=== PATIENT | female | born 1995 | race Caucasian/White ===

== ENCOUNTER 2020-01-09 11:39 | Outpatient (REF) | payer OTHER, SELFPAY ==
[2020-01-09 11:59] LABS: COVID-19 Test Negative (Negative)
== END 2020-01-09 11:40 | disposition home or self-care (01) ==
LOC: HO.LABR 11:39
PROVIDERS: Visit Provider Internal Medicine
DX: Z20.828 Contact with and (suspected) exposure to other viral communicable diseases (principal)
CPT/HCPCS: 87635

== ENCOUNTER 2020-01-18 10:44 | Outpatient (REF) | payer OTHER, SELFPAY ==
[2020-01-18 11:02] LABS: COVID-19 Test Negative (Negative)
== END 2020-01-18 10:45 | disposition home or self-care (01) ==
LOC: HO.LAB 10:44
PROVIDERS: Visit Provider Internal Medicine
DX: Z20.828 Contact with and (suspected) exposure to other viral communicable diseases (principal)
CPT/HCPCS: 87635

== ENCOUNTER 2020-02-14 10:28 | Outpatient (REF) | payer OTHER, SELFPAY ==
[2020-02-14 10:57] LABS: COVID-19 Test Negative (Negative)
== END 2020-02-14 10:29 | disposition home or self-care (01) ==
LOC: HO.EMPCOV 10:28
PROVIDERS: Visit Provider Internal Medicine
DX: Z20.828 Contact with and (suspected) exposure to other viral communicable diseases (principal)
CPT/HCPCS: 87635; C9803

== ENCOUNTER 2020-02-20 08:26 | Outpatient (REF) | payer OTHER, SELFPAY ==
[2020-02-20 09:00] LABS: COVID-19 Test Negative (Negative)
== END 2020-02-20 08:27 | disposition home or self-care (01) ==
LOC: HO.EMPCOV 08:26
PROVIDERS: Visit Provider Internal Medicine
DX: Z20.828 Contact with and (suspected) exposure to other viral communicable diseases (principal)
CPT/HCPCS: 87635; C9803

== ENCOUNTER 2020-02-25 08:47 | Outpatient (REF) | payer OTHER, SELFPAY ==
[2020-02-25 09:53] LABS: COVID-19 Test Negative (Negative); IDNOW Serial# 55D5AD1C
== END 2020-02-25 08:48 | disposition home or self-care (01) ==
LOC: HO.EMPCOV 08:47
PROVIDERS: Visit Provider Internal Medicine
DX: Z20.828 Contact with and (suspected) exposure to other viral communicable diseases (principal)
CPT/HCPCS: 87635; C9803

== ENCOUNTER 2020-02-27 00:37 | Emergency (ER) | payer OTHER, SELFPAY ==
--- NOTE | 2020-02-27 | XR_ITS ---
EXAMINATION: XR CHEST CLINICAL INFORMATION: Chest wall/left lateral rib pain COMPARISON: None TECHNIQUE: 2 views of the chest were obtained. FINDINGS: The lungs are clear with no focal consolidation. No evidence of pneumothorax, pulmonary edema, or pleural effusions. The cardiomediastinal silhouette is unremarkable. No acute osseous findings. XR/XR chest 2V IMPRESSION: No acute cardiopulmonary findings.
[2020-02-27 01:01] VITALS: BP 127/71; PULSE 83; RESP 16; TEMP 37.1; O2SAT 96; BMI 27.4
--- NOTE | 2020-02-27 02:27 | PC.NURSE ---
Pt awake and alert, breathing equal and unlabored. Breath sounds clear throughout. Presents to ED for concerns of left sided chest wall pain, mainly under left breast. Pt states she denies injury to area. Pt states pain worse with movement, pain not always constant. Pain started this morning. Denies other concerns. Well appearing. Will continue to monitor. Awaiting provider eval
--- NOTE | 2020-02-27 03:14 | ED.GENADULT ---
HPI - General Adult General Chief complaint: General Medical Stated complaint: LEFT RIB PAIN Time Seen by Provider: 02/27/20 03:05 Source: patient Mode of arrival: ambulatory Limitations: no limitations History of Present Illness HPI narrative: this is a 24-year-old female who describes various areas of transient pain going from the left lower rib area down across her middle that is not associated with any fevers, chills, nausea, vomiting, diarrhea, urinary pain/ burning / frequency. Patient does state that she suffers from constipation and has not been able to go in a couple of days. Related Data Previous Rx's Medication Instructions Recorded polyethylene glycol 3350 [Miralax] 17 g PO BID #119 g 02/27/20 Allergies Allergy/AdvReac Type Severity Reaction Status Date / Time No Known Allergies Allergy Verified 02/27/20 00:59 Review of Systems Review of Systems: Pertinent positives and negatives as stated in HPI 10 point review of systems otherwise negative. PMFSH Past Medical History Source: nursing notes reviewed Medical History No known health problems Social History Social History Advance Directives: No Advance Directives Information Provided: No Physical Exam Vital Signs: Vital Signs: Last Vital Signs Temp 98.7 F 02/27/20 01:01 Pulse 83 02/27/20 01:01 Resp 16 02/27/20 01:01 BP 127/71 02/27/20 01:01 Pulse Ox 96 02/27/20 01:01 Body Mass Index 27.4 VITAL SIGNS: Reviewed. GENERAL: Well developed, well nourished, in no acute distress. HEAD: Normocephalic/atraumatic, EYES: PERRLA, EOMI intact without pain, no nystagmus/pallor/icterus noted EARS: Ext canals without abnormality, TMs non-bulging and non-erythematous NOSE: Nares patent bilateral OROPHARYNX: no oral lesions noted, posterior pharynx clear and non-erythematous without noted tonsillar enlargement/erythema/exudates NECK: Supple, no adenopathy LUNGS: Normal breath sounds. No adventitious sounds or accessory muscle use. SpO2<96> CARDIOVASCULAR: Regular rate and rhythm without noted murmurs, no JVD or lower extremity edema. ABDOMEN: Soft, very mild discomfort, non-distended with bowel sounds. No rigidity. No guarding. No palpable masses or hernias noted MUSCULOSKELETAL: No tenderness, deformities, or effusions noted on gross inspection. EXTREMITIES: No cyanosis, clubbing or edema. SKIN: Inspection of the skin reveals no rashes, ulcerations, jaundice, pallor, or petechiae. NEUROLOGIC: Alert and oriented x 4. Strength and sensation to light touch were grossly intact x 4. Course Course Course Narrative: this is a 24-year-old female with history and clinical presentation most consistent with constipation and review of x-ray is negative for any acute findings to otherwise explain the constellation of her pain locations. Given the absence other constitutional symptoms this is unlikely to be consistent with a gastritis, diverticulitis, renal colic, or UTI. This was all discussed with the patient at bedside and she agrees that this is likely secondary to her constipation and treatment was discussed with her regarding MiraLax twice a day and increase her oral hydration. Discharge Plan Discharge Clinical Impression: Constipation Qualifiers: Constipation type: unspecified constipation type Qualified Code(s): K59.00 - Constipation, unspecified Patient Disposition: Home, Self-Care Instructions: Constipation (ED), High Fiber Diet (ED) Additional Instructions: 1. Increase her fluid hydration especially with water. 2. increase fruits and vegetables. The patient and/or family acknowledge understanding of results (as applicable), diagnosis, treatment plan, need for follow up, and symptoms that should prompt a return to the emergency room. Prescriptions: New polyethylene glycol 3350 [Miralax] 17 gram/dose powder 17 g PO BID Qty: 119 RF: 0 Referrals: Physician,None [Primary Care Provider] - 2 days
== END 2020-02-27 03:42 | disposition home or self-care (01) ==
PROVIDERS: Emergency Provider Student in an Organized Health Care Education/Training Program
DX: K59.00 Constipation, unspecified (principal); R10.9 Unspecified abdominal pain; Z79.899 Other long term (current) drug therapy
CPT/HCPCS: 71046; 99283

== ENCOUNTER 2020-03-11 10:17 | Outpatient (REF) | payer OTHER, SELFPAY ==
[2020-03-11 10:47] LABS: COVID-19 Test Negative (Negative)
== END 2020-03-11 10:18 | disposition home or self-care (01) ==
LOC: HO.EMPCOV 10:17
PROVIDERS: Visit Provider Internal Medicine
DX: Z20.828 Contact with and (suspected) exposure to other viral communicable diseases (principal)
CPT/HCPCS: 87635; C9803

== ENCOUNTER 2020-04-03 07:57 | Outpatient (REF) | payer OTHER, SELFPAY ==
[2020-04-03 08:16] LABS: COVID-19 Test Negative (Negative)
== END 2020-04-03 07:58 | disposition home or self-care (01) ==
LOC: HO.EMPCOV 07:57
PROVIDERS: Visit Provider Internal Medicine
DX: Z20.828 Contact with and (suspected) exposure to other viral communicable diseases (principal)
CPT/HCPCS: 36415; 87635; C9803

== ENCOUNTER 2020-04-14 11:42 | Outpatient (REF) | payer OTHER, SELFPAY ==
[2020-04-14 12:21] LABS: COVID-19 Test Negative (Negative)
== END 2020-04-14 11:43 | disposition home or self-care (01) ==
LOC: HO.EMPCOV 11:42
PROVIDERS: Visit Provider Internal Medicine
DX: Z20.822 Contact with and (suspected) exposure to COVID-19 (principal)
CPT/HCPCS: 36415; 87635; C9803

== ENCOUNTER 2020-06-04 10:12 | Outpatient (REF) | payer OTHER, SELFPAY ==
[2020-06-04 10:48] LABS: COVID-19 Test Negative (Negative); IDNOW Serial# 55D5AD1C
== END 2020-06-04 10:13 | disposition home or self-care (01) ==
LOC: HO.EMPCOV 10:12
PROVIDERS: Visit Provider Internal Medicine
DX: Z11.52 Encounter for screening for COVID-19 (principal)
CPT/HCPCS: 36415; 87635; C9803

== ENCOUNTER 2025-01-01 10:00 | Outpatient (REF) | payer OTHER, SELFPAY ==
--- OUTSIDE RECORDS SUMMARY | 2025-01-01 09:30 | XMS_ITS | Encounter Summary ---
Author Organization [employer] Address [address] [place] [address] 7t [place] [address] Care Team Providers Care Chair And Couch Maker Name Role Phone Delaney Long MD Primary Care Provide r Reason for Referral * Imaging (Routine) - Authorized Specialty Diagnoses / Procedures Referred By Contac t Referred To Contact Radiology Diagnoses Metrorrhagia Procedures Us Pelvis complete Delaney Long MD [address] [place] [address] Phone: tel: fax: [address] Phone: tel: fax: Referral ID Status Reason Start Date Expiration Date V isits Requested Visits Authorized [id number] Authorized 01/01/2025 01/01/2026 1 1 Encounter Details Date Type Department Care Team (Late st Contact Info) Description 01/01/2025 9:30 AM EDT Office Visit [facility] [address] [place] [address] [phone] Delaney Long MD [address] [place], [place] [phone] Dietary counseling; Exercise counseling; Metrorrhagia; Desire for Social History Tobacco Use Types Packs/Day Years Used Date Smoking Tobacco: Never Smokeless Tobacco: Never Alcohol Use Standard Drinks/Week Comments Yes 0 (1 standard drink = 0.6 oz pur e alcohol) Socially Depression Answer Date Recorded Patient Health Questionnaire-9 Score 0 01/31/2023 Patient Health Questionnaire-9 Score 0 01/31/2023 Last PHQ-9: Questionnaire Data Not on file 1 04/02/2022 Housing Stability Answer Date Recorded What is [...] Date Recorded Patient Health Questionnaire-2 Score 0 01/31/2023 Internet Access Answer Date Recorded Internet Access [...] 9:34 AM EDT documented in this encounter Plan of Treatment Upcoming Encounters Date Type Department Care Team (Late st Contact Info) Description 01/07/2025 9:00 AM EDT Telemedicine [address] [phone] Delaney Long MD [address] [place], [place] [phone] 01/10/2025 10:15 AM EDT Procedure Visit [facility] [address] [place] [address] [phone] Delaney Long MD [address] [place] [address] [phone] Scheduled Orders Name Type Priority Associated Diagnoses Orde r Schedule Us Pelvis complete Imaging Routine Metrorrhagia Expected: 01/01/2025, Expires: 01/01/2026 Comprehensive Metabolic Panel Lab Routine Metrorrhagia Expected: 01/01/2025 (Approximate), Expires: 01/01/2026 HIV-1/2 Antigen and Antibodies, Fourth Generation, with Reflexes Lab Routine Metrorrhagia Expected: 01/01/2025 (Approximate), Expires: 01/01/2026 Hepatitis C Antibody with Reflex to HCV, RNA, Quantitative, Real-Time PCR Lab Routine Metrorrhagia Expected: 01/01/2025, Expires: 01/01/2026 Lipid Panel, Standard Lab Routine Metrorrhagia Expected: 01/01/2025 (Approximate), Expires: 01/01/2026 Vitamin D, 25-Hydroxy, Total, Immunoassay Lab Routine Metrorrhagia Expected: 01/01/2025 (Approximate), Expires: 01/01/2026 TSH with Reflex to Free T4 Lab Routine Metrorrhagia Expected: 01/01/2025 (Approximate), Expires: 01/01/2026 documented as of this encounter Procedures Procedure Name Priority Date/Time Associated Diagnosis Comments CBC WITH AUTO DIFFERENTIAL Routine 01/01/2025 10:05 AM EDT Metrorrhagia HEMOGLOBIN A1C Routine 01/01/2025 10:05 AM EDT Metrorrhagia documented in this encounter Results * Hemoglobin A1c (01/01/2025 10:05 AM EDT) Hemoglobin A1c 4.9 <6.0 % [facility] Comment:Hemoglobin A1C Refer ence Range Adults: 4.8 - 6.0 % Non diabetic: < 6.0 % Goal: < 7.0 %Additional Action Suggested: > 8.0 %Note: Hemoglobin A1c results are invalid for patients with abnormal amounts of HbF. Blood transfusions may impact the HbA1c concentration in the patient sample. Estimated Average Glucose 94 mg/dL [facility] Comment:eAG = Estimated ave rage glucose which is %A1C expressed asaverage glucose, using the formula of the E6R-PdtnddsQayijsf Glucose study (ADAG), Diabetes Care, Vol.31,#8,Oct. 2007 Blood Venous blood specimen / Unknown 01/01/2025 10:05 AM EDT 01/01/2025 11:27 AM EDT us Delaney Quinonez MD LAB BLOOD ORDERABLES Final Result [facility] [address] [place] [phone] * CBC auto differential (01/01/2025 10:05 AM EDT) White Blood Count 5.6 4.8 - 10.8 X10*3/uL [facility] Red Blood Count 4.34 4.20 - 5.50 X10*6/uL [facility] Hemoglobin 12.3 12.0 - 16.0 g/dl [facility] Hematocrit 38.0 37.0 - 47.0 % [facility] Mean Corpuscular Volume 87.6 80.0 - 98.0 fL [facility] Mean Corpuscular Hemoglobin 28.3 27.0 - 33.0 pg [facility] Mean Corpuscular HGB Conc 32.4 31.0 - 35.0 g/dl [facility] Red Cell Distribution Width 12.3 11.0 - 16.0 % [facility] Platelet Count 210 160 - 400 X10*3/uL [facility] Mean Platelet Volume 12.2 9.4 - 12.3 fL [facility] Neutrophils Percent Auto 56.6 45 - 73 % [facility] Imm Gran Pct Auto 0.4 0.0 - 0.4 % [facility] Lymphocytes Percent Auto 33.2 20 - 40 % [facility] Monocytes Percent Auto 6.8 2 - 11 % [facility] Eosinophils Percent Auto 2.1 0 - 4 % [facility] Basophils Percent Auto 0.9 0 - 2 % [facility] NRBC Pct Auto 0.0 0.0 - 0.2 /100WBC [facility] Neutrophils Absolute Auto 3.2 2.0 - 8.3 x10*3/uL [facility] Imm Gran Abs Auto 0.02 0.00 - 0.03 X10*3/uL [facility] Lymphocytes Absolute Auto 1.9 1.2 - 4.9 X10*3/uL [facility] Monocytes Absolute Auto 0.4 0.1 - 1.2 X10*3/uL [facility] Eosinophils Absolute Auto 0.1 0.0 - 0.4 X10*3/uL [facility] Basophils Absolute Auto 0.1 0.0 - 0.2 X10*3/uL [facility] NRBC Abs Auto 0.000 0.0 - 0.012 X10*3/uL [facility] Blood Venous blood specimen / Unknown 01/01/2025 10:05 AM EDT 01/01/2025 11:27 AM EDT us Delaney Quinonez MD LAB BLOOD ORDERABLES Final Result [facility] [address] [place] [phone] documented in this encounter Visit Diagnoses Diagnosis Dietary counseling Dietary surveillance and counseling Exercise counseling Metrorrhagia Desire for documented in this encounter Additional Health Concerns Assessment Noted Time PHQ-9 Depression Total Score: 0 02/01/20 23 2:56 PM EST documented as of this encounter Care Teams Chair And Couch Maker Relationship Specialty Start Date End Date Delaney Long MD [address] [place] [phone] PCP - General Family Medicine 02/28/20 documented as of this encounter
[2025-01-01 11:29] LABS: MANUAL DIFF FLAG NO
[2025-01-01 11:41] LABS: Hematocrit 38.0 % (37.0-47.0); Hemoglobin 12.3 g/dl (12.0-16.0); Imm Gran Abs Auto 0.02 X10*3/uL (0.00-0.03); Imm Gran Pct Auto 0.4 % (0.0-0.4); Lymphocytes Absolute Auto 1.9 X10*3/uL (1.2-4.9); Mean Corpuscular HGB Conc 32.4 g/dl (31.0-35.0); Mean Corpuscular Hemoglobin 28.3 pg (27.0-33.0); Mean Corpuscular Volume 87.6 fL (80.0-98.0); NRBC Abs Auto 0.000 X10*3/uL (0.0-0.012); NRBC Pct Auto 0.0 /100WBC (0.0-0.2); Platelet Count 210 X10*3/uL (160-400); Red Blood Count 4.34 X10*6/uL (4.20-5.50); White Blood Count 5.6 X10*3/uL (4.8-10.8)
--- OUTSIDE RECORDS SUMMARY | 2025-01-01 11:46 | XMS_ITS | Encounter Summary ---
Author Organization [employer] Address [address] [facility] 7t [place] [address] Care Team Providers Care Watch Crystal Edge Grinder Name Role Phone Delaney Long MD Primary Care Provide r Encounter Details Date Type Department Care Team (Latest Contact Info) Description 01/01/2025 Travel Social History Tobacco Use Types Packs/Day Years [...] AM EDT documented as of this encounter Plan of Treatment Upcoming Encounters Date Type Department Care Team (Late st Contact Info) Description 01/07/2025 9:00 AM EDT Telemedicine [facility] [address] [place] [phone] Delaney Long MD [address] [place] [phone] 01/10/2025 10:15 AM EDT Procedure Visit [facility] [address] [place] [phone] Delaney Long MD [address] [place] [phone] documented as of this encounter Visit Diagnoses Not on filedocumented in this encounter Additional Health Concerns Assessment Noted Time PHQ-9 Depression Total Score: 0 02/01/20 23 2:56 PM EST documented as of this encounter Care Teams Watch Crystal Edge Grinder Relationship Specialty Start Date End Date Delaney Long MD [address] [place] [phone] PCP - General Family Medicine 02/28/20 documented as of this encounter
--- OUTSIDE RECORDS SUMMARY | 2025-01-01 11:46 | XMS_ITS | Clinical Summary ---
Author Organization [employer] Address [address] [place] [address] 7t [place] [address] Care Team Providers Care Filler Picker Name Role Phone Delaney Long MD Primary Care Provide r Allergies No known active allergies Medications hydrocortisone (Anusol-HC) 2.5 % rectal creamIndications :Grade I hemorrhoids Insert into the rectum 2 times daily. 28 g 3 Active fluticasone (Flonase Allergy Relief) 50 MCG/ACT nasal spray Administer 1 spray into each nostril Once per day. Shake gently. Before first use, prime pump. After use, clean tip and replace cap. 16 g 12 4 02/03/20 25 Active albuterol 108 (90 Base) MCG/ACT inhaler Inhale 2 puffs every 4 (four) hours if needed for wheezing or shortness of breath. 18 g 1 4 02/03/20 25 Active Spacer/Aero-Hold ing Chambers (OptiChamber Danna) misc 1 each every 4 (four) hours if needed (asthma). 1 each 4 Active Vit-Fe Fumarate-FA ( Vitamins) 27-0.8 MG tabletIndication s:Desire for Take 1 tablet by mouth Once per day. 30 each 6 5 Active Active Problems Problem Noted Date Diagnosed Date Metrorrhagia 01/01/2025 Desire for 01/01/2025 Other constipation 01/31/2023 Assessment & Plan (01/31/2023 3:42 PM EST): Drink more water, walk more, include more fiber on the diet Grade I hemorrhoids 01/31/2023 Encounter for preventive care 01/31/2023 Assessment & Plan (01/31/2023 3:42 PM EST): See HPI Encounters Date Type Department Care Team Description 01/01/2025 9:30 AM EDT Office Visit [address] [phone] Delaney Long MD Dietary counseling; Exercise counseling; Metrorrhagia; Desire for 01/01/2025 Travel 12/31/[address] [phone] Delaney Long MD Chart Prep 12/25/2024 Patient Outreach [address] [phone] Delaney Long MD Pre-visit Planning (SDOH screening completed on 10/08/2024) 10/10/[address] [address] Delaney Long MD Appointment Request 10/08/2024 Patient Outreach [address] [phone] Delaney Long MD Pre-visit Planning (SDOH screening negative and tobacco screening negative) from Last 3 Months Immunizations Immunization Administration Dates Next Due DTaP 11/06/2001, 9,01/28/1999,05/07,01/01/1998 HPV, Quadrivalent 06/08/2013,03/15/2012,08/16/19 10 Hep A, ped/adol, 2 dose 05/29/2015 Hep B, Adolescent or Pediatric 05/07/1998,1997,01/01/1998 Hib (HbO) 01/28/1999, 9,03/05/1998,01/01 IPV 11/07/2007, 9,03/05/1998,01/01 Influenza injectable quadriv alent IIV4 with preservative 12/24/2016,05/29/2015 Influenza injectable quadriv alent preservative free 12/23/2022,12/11/2021,01/08/2021,12/24,02/28/2018 Influenza, Split (incl. [place] antigen) 06/08/2013 Influenza, live, intranasal 03/15/2012 Influenza, seasonal, injecta ble, preservative free 02/11/2016 MMR 11/06/2001,10/29/1998 Meningococcal MCV4P ACYW-135 05/29/2015,08/16/19 10 Tdap 12/24/2016,08/15/2009 Varicella 07/26/2008,10/29/1998 Social History Tobacco Use Types Packs/Day Years [...] Orientation Straight 01/25/2022 10 :16 AM EDT Last Filed Vital Signs Vital Sign Reading [...] Mass Index 27.39 01/01/2025 9:34 AM EDT Plan of Treatment Upcoming Encounters Date Type Department Care Team (Late st Contact Info) Description 01/07/2025 9:00 AM EDT Telemedicine [facility] [address] [place] [phone] Delaney Long MD [address] [place] [phone] 01/10/2025 10:15 AM EDT Procedure Visit [facility] [address] [place] [phone] Delaney Long MD [address] [place] [phone] Health Maintenance Due Date Last Done Comments Disability Screening 1997 Alcohol/Substance Use Screening 2009 Family Planning (PISQ) 2012 Hepatitis A Vaccines (2 of 2 - 2-dose series) 11/29/2015 05/29/2015 Depression Screening 02/01/2024 01/31/2023, 02/01/20 23 COVID-19 Vaccine ( season) 2024 Influenza Vaccine (#1) 2024 , 12/23/2022, 12/11/2021, Additional history exists Pap Smear 12/11/2024 12/11/2021, 10/10/2019 SDOH Screening 10/08/2025 10/08/2024 Tobacco Screening 01/01/2026 01/01/2025 DTaP/Tdap/Td Vaccines (7 - Td or Tdap) 12/24/2026 12/24/2016, 08/15/2009, 11/06/2001, Additional history exists Zoster Vaccines (1 of 2) 10/26/2047 RSV Patients and Patients Aged 60 years or older (1 - 1-dose 75+ series) 2072 Hepatitis B Vaccines Completed 05/07/1998, 03/05/1998, 01/01/1998 HIB Vaccines Completed 01/28/1999, 04/28, 03/05/1998, Additional history exists IPV Vaccines Completed 11/07/2007, 04/28, 03/05/1998, Additional history exists HPV Vaccines Completed 06/08/2013, 02/25, 08/15/2009 Meningococcal Vaccine Completed 05/29/2015, 010 HIV Screening Completed 07/09/2021 Hepatitis C Screening Completed 07/09/2021 Meningococcal B Vaccine Aged Out No l onger eligible based on patient's age to complete this topic Pneumococcal Vaccine: Pediatrics (0 to 5 Years) and At-Risk Patients (6 to 49) Years Aged Out No longer eligible based on patient's age to complete this topic RSV under 20 months Aged Out No longe r eligible based on patient's age to complete this topic Rotavirus Vaccines Aged Out No longer eligible based on patient's age to complete this topic Procedures Procedure Name Priority Date/Time Associated Diagnosis Comments HEMOGLOBIN A1C Routine 01/01/2025 10:05 AM EDT Metrorrhagia CBC WITH AUTO DIFFERENTIAL Routine 01/01/2025 10:05 AM EDT Metrorrhagia THINPREP IMAGING SYSTEM PAP Routine 12/11/2021 2:38 PM EDT ZZZ HISTORICAL HEPATITIS C AB W/REFL TO HCV RNA, QN, PCR Routine 07/09/2021 3:10 PM EDT HIV 1/2 ANTIGEN/ANTIBODY, FOURTH GENERATION W/RFL Routine 07/09/2021 3:10 PM EDT from Last 3 Months or Most Recently Relevant to Health Maintenance Results * CBC auto differential (01/01/2025 10:05 AM EDT) White Blood Count 5.6 4.8 - 10.8 X10*3/uL [facility] Red Blood Count 4.34 4.20 - 5.50 X10*6/uL [facility] Hemoglobin 12.3 12.0 - 16.0 g/dl [facility] Hematocrit 38.0 37.0 - 47.0 % [facility] Mean Corpuscular Volume 87.6 80.0 - 98.0 fL [facility] Mean Corpuscular Hemoglobin 28.3 27.0 - 33.0 pg [facility] Mean Corpuscular HGB Conc 32.4 31.0 - 35.0 g/dl [facility] Red Cell Distribution Width 12.3 11.0 - 16.0 % [facility] Platelet Count 210 160 - 400 X10*3/uL [facility] Mean Platelet Volume 12.2 9.4 - 12.3 fL [facility] Neutrophils Percent Auto 56.6 45 - 73 % [facility] Imm Gran Pct Auto 0.4 0.0 - 0.4 % [facility] Lymphocytes Percent Auto 33.2 20 - 40 % [facility] Monocytes Percent Auto 6.8 2 - 11 % [facility] Eosinophils Percent Auto 2.1 0 - 4 % [facility] Basophils Percent Auto 0.9 0 - 2 % [facility] NRBC Pct Auto 0.0 0.0 - 0.2 /100WBC [facility] Neutrophils Absolute Auto 3.2 2.0 - 8.3 x10*3/uL [facility] Imm Gran Abs Auto 0.02 0.00 - 0.03 X10*3/uL [facility] Lymphocytes Absolute Auto 1.9 1.2 - 4.9 X10*3/uL [facility] Monocytes Absolute Auto 0.4 0.1 - 1.2 X10*3/uL [facility] Eosinophils Absolute Auto 0.1 0.0 - 0.4 X10*3/uL [facility] Basophils Absolute Auto 0.1 0.0 - 0.2 X10*3/uL [facility] NRBC Abs Auto 0.000 0.0 - 0.012 X10*3/uL [facility] Blood Venous blood specimen / Unknown 01/01/2025 10:05 AM EDT 01/01/2025 11:27 AM EDT us Delaney Quinonez MD LAB BLOOD ORDERABLES Final Result Performing Organization Address [facility] de Phone Number [facility] [address] [place] [phone] * Hemoglobin A1c (01/01/2025 10:05 AM EDT) Hemoglobin A1c 4.9 <6.0 % [facility] Comment:Hemoglobin A1C Refer ence Range Adults: 4.8 - 6.0 % Non diabetic: < 6.0 % Goal: < 7.0 %Additional Action Suggested: > 8.0 %Note: Hemoglobin A1c results are invalid for patients with abnormal amounts of HbF. Blood transfusions may impact the HbA1c concentration in the patient sample. Estimated Average Glucose 94 mg/dL [facility] Comment:eAG = Estimated ave rage glucose which is %A1C expressed asaverage glucose, using the formula of the Y7K-ZxntaviRpuspvm Glucose study (ADAG), Diabetes Care, Vol.31,#8,Oct. 2007 Blood Venous blood specimen / Unknown 01/01/2025 10:05 AM EDT 01/01/2025 11:27 AM EDT us Delaney Quinonez MD LAB BLOOD ORDERABLES Final Result Performing Organization Address [facility] de Phone Number [facility] [address] [place] [phone] * THINPREP TIS PAP (12/11/2021 2:38 PM EDT) Clinical Information: None given [facility] COMMENT SEE COMMENT [facility] Comment: EXPLANATORY NOTE: The Pap is a screening test for cervical cancer. It is not a diagnostic test and is subject to false negative and false positive results. It is most reliable when a satisfactory sample, regularly obtained, is submitted with relevant clinical findings and history, and when the Pap result is evaluated along with historic and current clinical information. COMMENT: This Pap test has been evaluated with computer assisted technology. [facility] Flap Presser : SEE COMMENT [facility] Comment: BK,CT(ASCP) CT screening location: [address] Interpretation/R esult: Negative for intraepithelial lesion or malignancy. [facility] LMP: NONE GIVEN [facility] Prev. BX: NONE [facility]IVEN [facility] Prev. PAP: NONE GIVEN [facility] SOURCE: None given [facility] Statement Of Adequacy: SEE COMMENT [facility] Comment: Satisfactory for evaluation. Endocervical/transformation zone component present. 12/11/2021 2:38 PM EDT Delaney Quinonez MD LAB PATHOLOGY ORDERAB LES Final Result [facility] [address] * HEPATITIS C AB W/REFL TO HCV RNA, QN, PCR (07/09/2021 3:10 PM EDT) HEPATITIS C ANTIBODY NON-REACT RADHA NON-REACT RADHA [facility] INDEX 0.01 <1.00 [facility] Comment: HCV antibody was non-reactive. There is no laboratory evidence of HCV infection. In most cases, no further action is required. However, if recent HCV exposure is suspected, a test for HCV RNA (test code 22286) is suggested. For additional information please refer to http://education.Editlite/faq/PTP18t0 (This link is being provided for informational/ educational purposes only.) 07/09/2021 3:10 PM EDT Delaney Quinonez MD HISTORICAL/NON ORDERA BLE LABS Final Result Performing Organization Address [facility] Co de Phone Number [facility] [address] * HIV 1/2 ANTIGEN/ANTIBODY,FOURTH GENERATION W/RFL (07/09/2021 3:10 PM EDT) HIV-1/2 ANTIGEN AND ANTIBODIES, 4TH GENERATION W/ REFLEX NON-REACT RADHA NON-REACT RADHA [facility] Comment: HIV-1 antigen and HIV-1/HIV-2 antibodies were not detected. There is no laboratory evidence of HIV infection. PLEASE NOTE: This information has been disclosed to you from records whose confidentiality may be protected by state law. If your state requires such protection, then the state law prohibits you from making any further disclosure of the information without the specific written consent of the person to whom it pertains, or as otherwise permitted by law. A general authorization for the release of medical or other information is NOT sufficient for this purpose. For additional information please refer to http://education.Inventergy.SwitchForce/faq/XYD822 (This link is being provided for informational/ educational purposes only.) The performance of this assay has not been clinically validated in patients less than 2 years old. 07/09/2021 3:10 PM EDT Delaney Quinonez MD LAB BLOOD ORDERABLES Final Result Performing Organization Address [facility] Co de Phone Number [facility] [address] from Last 3 Months or Most Recently Relevant to Health Maintenance Insurance , [address] [place] [address] Care Teams Filler Picker Relationship Specialty Start Date End Date Delaney Long MD [address] [place] [phone] PCP - General Family Medicine 02/28/20
--- OUTSIDE RECORDS SUMMARY | 2025-01-01 11:46 | XMS_ITS | Encounter Summary ---
Author Organization [employer] Address [address] [facility] 7t [place] [address] Care Team Providers Care Application Support Analyst Name Role Phone Delaney Long MD Primary Care Provide r Reason for Visit * Reason Onset Date Comments Chart Prep 12/31/2024 Encounter Details Date Type Department Care Team ([facility] st Contact Info) Description 12/31/[address] [facility]INE [address] [place], [place] [phone] Delaney Long MD [address] [place] [address] Chart Prep Social History Tobacco Use Types Packs/Day Years [...] AM EDT documented as of this encounter Miscellaneous Notes * Telephone Encounter - Mady Lehman [place] - 12/31/2024 12:08 PM EDT Chart Prep Labs: done Images: done Referrals: not applicable Vaccines due: Covid, Flu, and Hep A Screenings: pap smear and LMP Overdue care gaps: SBIRT, PHQ-9, EMMY-7, and Disability screen documented in this encounter Plan of Treatment Upcoming Encounters Date Type Department Care Team (Late st Contact Info) Description 01/07/2025 9:00 AM EDT Telemedicine [facility] MED[facility]INE [address] [place] [phone] Delaney Long MD [address] [place] [phone] 01/10/2025 10:15 AM EDT Procedure Visit [facility] [address] [place] [phone] Delaney Long MD [address] [place] [phone] documented as of this encounter Visit Diagnoses Not on filedocumented in this encounter Additional Health Concerns Assessment Noted Time PHQ-9 Depression Total Score: 0 02/01/20 23 2:56 PM EST documented as of this encounter Care Teams Application Support Analyst Relationship Specialty Start Date End Date Delaney Long MD [address] [place] [address] PCP - General Family Medicine 02/28/20 documented as of this encounter
[2025-01-01 12:07] LABS: Alanine Aminotransferase 15 U/L (0-31); Albumin Level 4.6 g/dL (3.5-5.0); Alkaline Phosphatase 44 U/L (39-117); Anion Gap 10 (12-20); Aspartate Amino Transferase 30 U/L (5-31); Blood Urea Nitrogen 13 mg/dL (9-16); Calcium 8.8 mg/dL (8.4-10.2); Carbon Dioxide 25 mmol/L (22-29); Chloride 109 mmol/L (96-108); Cholesterol 122 mg/dL (<200); Estimated Glomerular Filt Rate > 60; HDL Cholesterol 40 mg/dL (>40); Potassium 4.1 mmol/L (3.3-5.1); Sodium 140 mmol/L (135-145); Total Protein 7.2 g/dL (6.5-8.0); Triglycerides 54 mg/dL (<150)
[2025-01-01 12:19] LABS: HIV Num 1 0.05 S/CO (0.00-0.99); ~HepC Num1 0.10 S/CO (0.00-0.79); ~Hepatitis C Antibody Nonreactive (Nonreactive)
== END 2025-01-01 10:01 | disposition home or self-care (01) ==
LOC: HO.HHCL 10:00
PROVIDERS: PCP Internal Medicine; Visit Provider Internal Medicine
DX: Z11.4 Encounter for screening for human immunodeficiency virus [HIV] (principal); Z11.59 Encounter for screening for other viral diseases; Z13.6 Encounter for screening for cardiovascular disorders; Z13.1 Encounter for screening for diabetes mellitus; Z13.29 Encounter for screening for other suspected endocrine disorder; N92.1 Excessive and frequent menstruation with irregular cycle
CPT/HCPCS: 36415; 80053; 80061; 82306; 83036; 84443; 85025; 86803; 87389

== ENCOUNTER 2025-01-11 06:55 | Outpatient (REF) | payer OTHER, SELFPAY ==
--- OUTSIDE RECORDS SUMMARY | 2025-01-28 15:09 | XMS_ITS | Encounter Summary ---
Author Organization [employer] Address [address] [facility] [address]t [place] [address] Care Team Providers Care Run Lead Name Role Phone Delaney Long MD Primary Care Provide r Encounter Details Date Type Department Care Team ([facility] st Contact Info) Description 01/23/2025 Results Follow-Up [facility] [address] [place], [place] [phone] Delaney Long MD [address] [place] [address] Pap Smear Social History Tobacco Use Types Packs/Day Years [...] encounter Miscellaneous Notes * Telephone Encounter - Adriel Ernst MA - 01/23/2025 11:31 AM EDT Pt has been informed of PAP results. * Telephone Encounter - Adriel Ernst MA - 01/23/2025 11:31 AM EDT ----- Message from Nurse Otilia Chowdhury sent at 01/23/2025 10:27 AM EDT ----- ----- Message ----- From: Delaney Quinonez MD Sent: 01/23/2025 10:19 AM EDT To: [facility] Red Team Nurses Please let patient know I reviewed her pap result - results were Normal . . Next pap will be 3 years . ----- Message ----- From: Interface, Lab Results In Sent: 01/16/2025 1:49 PM EDT To: Delaney Quinonez MD documented in this encounter Plan of Treatment Not on file documented as of this encounter Visit Diagnoses Not on filedocumented in this encounter Additional Health Concerns Assessment Noted Time PHQ-9 Depression Total Score: 0 01/08/20 25 8:52 AM EDT documented as of this encounter Care Teams Run Lead Relationship Specialty Start Date End Date Delaney Long MD [address] [place] [address] PCP - General Family Medicine 02/28/20 documented as of this encounter
--- OUTSIDE RECORDS SUMMARY | 2025-01-28 15:09 | XMS_ITS | Clinical Summary ---
Author Organization [employer] Address [address] [place] [address] [address] [place] [address] Care Team Providers Care Manager Background Name Role Phone Delaney Long MD Primary [...] Encounters Date Type Department Care Team Description 01/23/2025 Results Follow-Up [facility] [address] [place] [phone] Delaney Long MD Pap Smear 01/15/[address] [address] Delaney Long MD TB Test 01/10/2025 10:15 AM EDT Procedure Visit [address] [address] Delaney Long MD Encounter for Papanicolaou smear of cervix 01/10/2025 Travel 01/09/[address] [address] Delaney Long MD CHART PREP 01/07/2025 9:00 AM EDT Telemedicine [address] [address] Delaney Long MD Metrorrhagia (Primary Dx); Vitamin D deficiency 01/07/2025 Travel 01/05/[address] [address] Delaney Long MD Chart Prep 01/01/2025 9:30 AM EDT Office Visit [address] [address] Delaeny Long MD Encounter for preventive care (Primary Dx); Dietary counseling; Exercise counseling; Metrorrhagia; Desire for 01/01/2025 Travel 12/31/[address] [address] Delaney Long MD Chart Prep 12/25/2024 Patient Outreach [address] [address] Delaney Long MD Pre-visit Planning ([facility] screening completed on 10/08/2024) from Last 3 [...] Procedure Name Priority Date/Time Associated Diagnosis Comments T-SPOT(R).TB Routine 01/16/2025 3:40 PM EDT Screening examination for pulmonary tuberculosis PAP SMEAR Routine 01/10/2025 1:49 PM EDT [...] Metrorrhagia from Last 3 Months Results * T-SPOT??.TB (01/16/2025 3:40 PM EDT) [facility] T Spot TB Negative Negative [facility] Comment:A negative test resu lt does not exclude the possibilityof exposure to or infection with Mycobacteriumtuberculosis (M. tuberculosis). Patients with recentexposure to TB infected individuals exhibiting anegative T-SPOT.TB result should be considered forretesting within 6 weeks or if other relevant clinicalsymptoms indicate. Results from T-SPOT.TB testing mustbe used in conjunction with each individual'sepidemiological history, current medical status,and results of other diagnostic evaluations.The T-SPOT.TB test is qualitative and results arereported as positive, borderline, or negative, giventhat the test controls perform as expected. In linewith the Centers for Disease Control and Prevention's2010 recommendation to report quantitative measurementsalongside the qualitative result, the laboratoryprovides spot counts for informational purposes only.The T-SPOT.TB test should not be interpreted as aquantitative test. TS PANEL A 0 [facility] TS PANEL B 0 [facility] Negative Control Passed [facility] Positive Control Passed [facility] Comment:For additional infor mation, please refer tohttp://education.SemaConnect.BUILD/faq/SSI136(This link is being provided for informational/educational purposes only.)THIS TEST WAS PERFORMED AT:[employer] [id number] [place] [address]HADASBDELIANA GONZALEZ MD,PHD 01/16/2025 3:40 PM EDT 01/16/2025 4:05 PM EDT us Delaney Quinonez MD LAB BLOOD ORDERABLES Final Result [facility] [address] [place] [phone] * Pap Smear (01/10/2025 1:49 PM EDT) Swab Cervical swab / Unknown 01/10/2025 1:49 PM EDT 01/11/2025 6:00 AM EDT Narrative [facility] - 01/16/2025 1:48 PM EDT ----- ------- Name: Teena Celestin Age/Sex: 29/F : 1995 Unit#: [id number] Attend Dr: Re01/10/25 Status: PRE REF Location: [facility] Disch: ----- ------- SPEC : [id number] RECD: 01/11/25 STATUS: MARQUISE GONZALEZ NUM: [id number] ROSALIE: 01/10/[address]: Delaney Long MD ENTERED: 01/11/25 SP TYPE: Pap Smr OTHR DR: ORDERED: Pap Smear, PAP path review [...] MD LAB CYTOLOGY ORDERABL ES Final Result [facility] [address] [place] [phone] * (ABNORMAL) Vitamin D, 25-Hydroxy, Total, Immunoassay (01/01/2025 10:05 AM EDT) Vitamin D 25-OH Total 25.2(L) >30 ng/mL [facility] Comment: Health Based Reference Values*< 20 ng/mL Rakzkueyp05-75 ng/mL Insufficient> 30 ng/mL Sufficient*Ari LAY. N [...] BLOOD ORDERABLES Final Result Performing Organization Address [facility]/ZIP Co de Phone Number [facility] [address] [place] [phone] * TSH with Reflex to Free T4 (01/01/2025 10:05 AM EDT) TSH reflex Free T4 1.08 0.32 - 4.0 uIU/mL [facility] Blood Venous blood specimen / Unknown 01/01/2025 10:05 AM EDT 01/01/2025 11:27 AM EDT Delaney Quinonez MD LAB BLOOD ORDERABLES Final Result Performing Organization Address City/[facility]/ZIP Co de Phone Number [facility] [address] [place] [phone] * CBC auto differential (01/01/2025 10:05 AM EDT) White Blood Count 5.6 4.8 - 10.8 X10*3/uL [facility] Red Blood Count 4.34 4.20 - 5.50 X10*6/uL [facility] Hemoglobin 12.3 12.0 - 16.0 g/dl [facility] Hematocrit 38.0 37.0 - 47.0 % [facility] Mean Corpuscular Volume 87.6 80.0 - 98.0 fL [facility] Mean Corpuscular Hemoglobin 28.3 27.0 - 33.0 pg [facility] Mean Corpuscular HGB Conc 32.4 31.0 - 35.0 g/dl [facility] Red Cell Distribution Width 12.3 11.0 - 16.0 % [facility] Platelet Count 210 160 - 400 X10*3/uL [facility] Mean Platelet Volume 12.2 9.4 - 12.3 fL [facility] Neutrophils Percent Auto 56.6 45 - 73 % [facility] Imm Gran Pct Auto 0.4 0.0 - 0.4 % [facility] Lymphocytes Percent Auto 33.2 20 - 40 % [facility] Monocytes Percent Auto 6.8 2 - 11 % [facility] Eosinophils Percent Auto 2.1 0 - 4 % [facility] Basophils Percent Auto 0.9 0 - 2 % [facility] NRBC Pct Auto 0.0 0.0 - 0.2 /100WBC [facility] Neutrophils Absolute Auto 3.2 2.0 - 8.3 x10*3/uL [facility] Imm Gran Abs Auto 0.02 0.00 - 0.03 X10*3/uL [facility] Lymphocytes Absolute Auto 1.9 1.2 - 4.9 X10*3/uL [facility] Monocytes Absolute Auto 0.4 0.1 - 1.2 X10*3/uL [facility] Eosinophils Absolute Auto 0.1 0.0 - 0.4 X10*3/uL [facility] Basophils Absolute Auto 0.1 0.0 - 0.2 X10*3/uL [facility] NRBC Abs Auto 0.000 0.0 - 0.012 X10*3/uL [facility] Blood Venous blood specimen / Unknown 01/01/2025 10:05 AM EDT 01/01/2025 11:27 AM EDT us Delaney Quinonez MD LAB BLOOD ORDERABLES Final Result Performing Organization Address [facility]/ZIP Co de Phone Number [facility] [address] [place] [phone] * Hepatitis C Antibody with Reflex to HCV, RNA, Quantitative, Real-Time PCR (01/01/2025 10:05 AM EDT) Hepatitis C Antibody Nonreactive Nonreactive [facility] Comment:Antibodies to HCV no t detected; does not exclude early acuteHCV infection. Blood Venous blood specimen / Unknown 01/01/2025 10:05 AM EDT 01/01/2025 11:27 AM EDT us Delaney Quinonez MD LAB BLOOD ORDERABLES Final Result Performing Organization Address [facility] de Phone Number [facility] [address] [place] [phone] * HIV-1/2 Antigen and Antibodies, Fourth Generation, with Reflexes (01/01/2025 10:05 AM EDT) HIV AB/AG Nonreactive Nonreactive [facility] Comment:HIV-1 p24 Ag and/or HIV-1/HIV-2 Ab not detected.A test result that is nonreactive does not exclude thepossibility of exposure to or infection with HIV-1 and/orHIV-2. Nonreactive results in this assay for individualswith prior exposure to HIV-1 and/or HIV-2 may be due toantigen and antibody levels that are below the limit ofdetection of this assay.The [employer] HIV Ag/Ab Combo assay result andsupplemental assay results should be interpreted inconjunction with the patient's clinical presentation,history and other laboratory results. If the results areinconsistent with clinical evidence, additional testing issuggested to confirm the result. Blood Venous blood specimen / Unknown 01/01/2025 10:05 AM EDT 01/01/2025 11:27 AM EDT us Delaney Quinonez MD LAB BLOOD ORDERABLES Final Result Performing Organization Address City/[facility]/ZIP Co de Phone Number [facility] [address] [place] [phone] * Hemoglobin A1c (01/01/2025 10:05 AM EDT) Hemoglobin A1c 4.9 <6.0 % [facility] Comment:Hemoglobin A1C Refer ence Range Adults: 4.8 - 6.0 % Non diabetic: < 6.0 % Goal: < 7.0 %Additional Action Suggested: > 8.0 %Note: Hemoglobin A1c results are invalid for patients with abnormal amounts of HbF. Blood transfusions may impact the HbA1c concentration in the patient sample. Estimated Average Glucose 94 mg/dL [facility] Comment:eAG = Estimated ave rage glucose which is %A1C expressed asaverage glucose, using the formula of the S2A-UckwigrDvchawg Glucose study (ADAG), Diabetes Care, Vol.31,#8,Aug. 2007 Blood Venous blood specimen / Unknown 01/01/2025 10:05 AM EDT 01/01/2025 11:27 AM EDT us Delaney Quinonez MD LAB BLOOD ORDERABLES Final Result Performing Organization Address City/[facility]/ZIP Co de Phone Number [facility] [address] [place] [phone] * (ABNORMAL) Lipid Panel, Standard (01/01/2025 10:05 AM EDT) Triglycerides 54 <150 mg/dL [facility] Comment:Desirable Triglyceri de: less than 150 mg/dLBorderline High Triglyceride 150-199 mg/dLHigh Triglyceride: 200-499 mg/dLVery High Triglyceride: greater than or equal to 5OO mg/dL Cholesterol 122 <200 mg/dL [facility] Comment:Desirable Cholestero l: less than 200 mg/dLBorderline High Cholesterol: 200-239 mg/dLHigh Cholesterol: greater than 239 mg/dL LDL Cholesterol Calculated 72 <100 mg/dL [facility] Comment:Desirable LDL: less than 100 mg/dLNear Optimal/Above Optimal LDL: 110- 129 mg/dLBorderline High LDL: 130-159 mg/dLHigh LDL: 160-189 mg/dLVery High LDL: greater than or equal to 190 mg/dL HDL Cholesterol 40(L) >40 mg/dL [facility] Comment:Desirable HDL: great er than 40 mg/dL Note: This HDL assay may give artificially low results in patients with liver disease. Blood Venous blood specimen / Unknown 01/01/2025 10:05 AM EDT 01/01/2025 11:27 AM EDT Delaney Quinonez MD LAB BLOOD ORDERABLES Final Result [facility] [address] [place] [phone] * (ABNORMAL) Comprehensive Metabolic Panel (01/01/2025 10:05 AM EDT) Sodium 140 135 - 145 mmol/L [facility] Potassium 4.1 3.3 - 5.1 mmol/L [facility] Chloride 109(H) 96 - 108 mmol/L [facility] Carbon Dioxide 25 22 - 29 mmol/L [facility] Anion Gap 10(L) 12 - 20 [facility] Urea Nitrogen (BUN) 13 9 - 16 mg/dL [facility] Creatinine, Serum 0.64 0.5 - 1.4 mg/dL [facility] Estimated Glomerular Filt Rate >60 [facility] Comment:Chronic Kidney Disea se: Estimated GFR < 60 mL/min/1.83m7Lueglo Kidney Disease: Estimated GFR < 15 mL/min/1.73m2 Glucose 85 60 - 115 mg/dL [facility] Calcium 8.8 8.4 - 10.2 mg/dL [facility] Bilirubin, Total 0.6 0.0 - 1.0 mg/dL [facility] Aspartate Amino Transferase 30 5 - 31 U/L [facility] Alanine Aminotransferase 15 0 - 31 U/L [facility] Total Protein 7.2 6.5 - 8.0 g/dL [facility] Albumin Level 4.6 3.5 - 5.0 g/dL [facility] Alkaline Phosphatase 44 39 - 117 U/L [facility] Blood Venous blood specimen / Unknown 01/01/2025 10:05 AM EDT 01/01/2025 11:27 AM EDT us Delaney Quinonez MD LAB BLOOD ORDERABLES Final Result [facility] [address] [place] [phone] from Last 3 Months Insurance , [address] [place] [address] Care Teams Manager Background Relationship Specialty Start Date End Date Delaney Long MD [address] [place] [phone] PCP - General Family Medicine 02/28/20
== END 2025-01-11 06:56 | disposition home or self-care (01) ==
LOC: HO.LNP 06:55
PROVIDERS: Visit Provider Family Medicine
DX: Z12.4 Encounter for screening for malignant neoplasm of cervix (principal)
CPT/HCPCS: 88175

== ENCOUNTER 2025-01-16 15:38 | Outpatient (REF) | payer OTHER, SELFPAY ==
--- OUTSIDE RECORDS SUMMARY | 2025-01-01 09:30 | XMS_ITS | Encounter Summary ---
Author Organization [employer] Address [address] [place] [address] [address] [place] [address] Care Team Providers Care Section Maintainer Name Role Phone Delaney Long MD Primary Care Provide r Reason for Referral * Imaging (Routine) - Authorized Specialty Diagnoses / Procedures Referred By Contac t Referred To Contact Radiology Diagnoses Metrorrhagia Procedures Us Pelvis complete Delaney Long MD [address] [place] [address] Phone: tel: fax: [address] Phone: tel: fax: Referral ID Status Reason Start Date Expiration Date V isits Requested Visits Authorized [id number] Authorized 01/01/2025 01/01/2026 1 1 Encounter Details Date Type Department Care Team (Late st Contact Info) Description 01/01/2025 9:30 AM EDT Office Visit [facility] MED[facility] [address] [place] [address] [phone] Delaney Long MD [address], [place] [phone] Encounter for preventive care (Primary Dx); Dietary counseling; Exercise counseling; Metrorrhagia; Desire for Social History Tobacco Use Types Packs/Day Years Used Date Smoking Tobacco: Never Smokeless Tobacco: Never Alcohol Use Standard Drinks/Week Comments Yes 0 (1 standard drink = 0.6 oz pur e alcohol) Socially Depression Answer Date Recorded Patient Health Questionnaire-9 Score 0 01/07/2025 Patient Health Questionnaire-9 Score 0 01/07/2025 Last PHQ-9: Questionnaire Data Not on file 1 Housing Stability Answer Date Recorded What is your housing situation today? I have myrna tuttle 10/08/[address] you li ve. Do you have problems with any of the following? None of the above 10/08/2024 Food Insecurity Answer Date Recorded Within the past 12 months, y ou worried that your food would run out before you got money to buy more: Never True 10/08/2024 Within the past 12 months,th e food you bought just didn't last and you didn't have enough money to get more: Never True Transportation Answer Date Recorded In the past 12 months, has l ack of transportation kept you from medical appts, meetings, work or from getting things needed for daily living? No 10/08/2024 Utilities Answer Date Recorded In the past 12 months, has t he electric, gas, oil or water company threatened to shut off services in your home? No 10/08/2024 Depression Answer Date Recorded Patient Health Questionnaire-2 Score 0 01/07/2025 Internet Access Answer Date Recorded Internet Access Q1 Yes 10/08/2024 Internet Access Q2 Not on file 10/08/2024 Comments Unknown Sex and Gender Information Value Date Recorded Sex Assigned at Female 01/25/2022 10:16 AM EDT Legal Sex Female 10:16 AM EDT Gender Identity Female 01/25/2022 10:16 AM EDT Sexual Orientation Straight 01/25/2022 10 :16 AM EDT documented as of this encounter Last Filed Vital Signs Vital Sign Reading Time Taken Comments Blood Pressure 126/82 01/01/2025 9:34 AM EDT Pulse 57 01/01/2025 9:34 AM EDT Temperature 34.8 C (94.7 F) 01/01/2025 9:34 AM EDT Respiratory Rate 20 01/01/2025 9:34 AM EDT Oxygen Saturation 98% 01/01/2025 9:34 AM EDT Inhaled Oxygen Concentration - - Weight 70.1 kg (154 lb 9.6 oz) 01/01/2025 9:34 A M EDT Height 160 cm (5' 3 ) 01/01/2025 9:34 AM EDT Body Mass Index 27.39 01/01/2025 9:34 AM EDT documented in this encounter Functional Status * Over the past 2 weeks, how often have you been bothered by any of the following problems? Question Answer Date of Assessment Author Patient Health Questionnaire-2 Score 0 12/26 8:52 AM EDT Anabel Vasquez [place] * Little interest or pleasure in doing things Answer Date of Assessment Author Not at all 01/07/2025 8:52 AM EDT Checo Vasquez ra, [place] * Feeling down, depressed, or hopeless Answer Date of Assessment Author Not at all 01/07/2025 8:52 AM EDT Checo Vasquez ra, [place] * Trouble falling or staying asleep, or sleeping too much Answer Date of Assessment Author Not at all 01/07/2025 8:52 AM EDT Checo Vasquez ra, [place] * Feeling tired or having little energy Answer Date of Assessment Author Not at all 01/07/2025 8:52 AM EDT Checo Vasquez ra, [place] * Poor appetite or overeating Answer Date of Assessment Author Not at all 01/07/2025 8:52 AM DONIST Checo Vasquez ra, [place] * Feeling bad about yourself - or that you are a failure or have let yourself or your family down Answer Date of Assessment Author Not at all 01/07/2025 8:52 AM EDCheco Mahmood ra, [place] * Trouble concentrating on things, such as reading the newspaper or watching television Answer Date of Assessment Author Not at all 01/07/2025 8:52 AM EDT Checo Vasquez ra, [place] * Moving or speaking so slowly that other people could have noticed? Or the opposite - being so fidgety or restless that you have been moving around a lot more than usual. Answer Date of Assessment Author Not at all 01/07/2025 8:52 AM Checo Osuna ra, [place] * Thoughts that you would be better off or hurting yourself in some way Answer Date of Assessment Author Not at all 01/07/2025 8:52 AM EDCheco Mahmood ra, [place] * Patient Health Questionnaire-9 Score Answer Date of Assessment Author 0 01/07/2025 8:52 AM EDT Checo Vasquez ra, [place] * Over the last 2 weeks, how often have you been bothered by any of the following problems? Question Answer Date of Assessment Author Feeling nervous, anxious, or on edge 0 12/26 8:52 AM EDT Anabel Vasquez MA Not being able to stop or co ntrol worrying 0 01/07/2025 8:52 AM EDT Anabel Vasquez MA Worrying too much about diff erent things 0 01/07/2025 8:52 AM EDT Anabel Vasquez MA Trouble relaxing 0 01/07/2025 8:52 AM EDT Anabel English MA Being so restless that it is hard to sit still 0 01/07/2025 8:52 AM EDT Anabel Vasquez MA Becoming easily annoyed or irritable 0 12/26 8:52 AM EDT Anabel Vasquez MA Feeling afraid as if somethi ng awful might happen 0 01/07/2025 8:52 AM EDT Anabel Vasquez MA EMMY-7 Total Score 0 01/07/2025 8:52 AM EDT Anabel Vasquez MA documented as of this encounter Progress Notes * Delaney Quinonez MD - 01/01/2025 9:30 AM EDT SUBJECTIVE: Teena Elaine is a 29 y.o. year old female who presents for Physical . Occupation: nurse Lives with: boyfriend Social Hx: On holidays drinking EtOH, denies smoking cigarettes and denies recreational drug use. Diet: regular Exercise: sedentary LMP: 12/30/24 Pap Smear:Patient has an appointment on 01/11/25 Hospitalizations/Surgeries: none Eye Care: up to date Dental Care: up to date PMHx: none FMHx: mother HTN, father multiple sclerosis Immunizations:Patient will get her flu vaccine at work Acute Concerns: metrorrhagia, patient reports her menstrual period is heavy with clots and she also has a lot of pain when she has her. She also has been noticing increased amount of facial hair, patient tells me she desires to get in about 6 months Social History Social History Narrative Not on file Problem List[1] Other constipation Grade I hemorrhoids Encounter for preventive care Metrorrhagia Desire for Family History[2] Review of Systems Constitutional: Negative. HENT: Negative. Respiratory: Negative. Cardiovascular: Negative. Genitourinary: Positive for menstrual problem. Negative for decreased urine volume, difficulty urinating, dyspareunia, dysuria, enuresis, flank pain, frequency, genital sores, hematuria, pelvic pain,urgency, vaginal bleeding, vaginal discharge and vaginal pain. OBJECTIVE: Vitals: 01/01/25 0934 BP: 126/82 BP Location: Left arm Patient Position: Sitting BP Cuff Size: Adult Pulse: 57 Resp: 20 Temp: 94.7 ??F (34.8 ??C) TempSrc: Temporal SpO2: 98% Weight: 154 lb 9.6 oz (70.1 kg) Height: 5' 3 (1.6 m) Physical Exam Constitutional: Appearance: Normal appearance. Cardiovascular: Rate and Rhythm: Normal rate and regular rhythm. Pulmonary: Effort: Pulmonary effort is normal. Abdominal: General: Abdomen is flat. Palpations: Abdomen is soft. Musculoskeletal: Right lower leg: No edema. Left lower leg: No edema. Neurological: Mental Status: She is alert. Follow Up: No follow-ups on file. Medications Ordered Prior to Encounter[3] Problem List Items Addressed This Visit Metrorrhagia Blood work ordered and I will order a pelvic ultrasound patient will be contacted with results Relevant Orders Us Pelvis complete CBC auto differential (Completed) Comprehensive Metabolic Panel (Completed) Hemoglobin A1c (Completed) HIV-1/2 Antigen and Antibodies, Fourth Generation, with Reflexes (Completed) Hepatitis C Antibody with Reflex to HCV, RNA, Quantitative, Real-Time PCR (Completed) Lipid Panel, Standard (Completed) Vitamin D, 25-Hydroxy, Total, Immunoassay (Completed) TSH with Reflex to Free T4 (Completed) Desire for Counseling done today, I will prescribe for patient vitamins Relevant Medications Vit-Fe Fumarate-FA ( Vitamins) 27-0.8 MG tablet Encounter for preventive care - Primary See HPI Other Visit Diagnoses Dietary counseling Exercise counseling [1] Patient Active Problem List Diagnosis Other constipation Grade I hemorrhoids Encounter for preventive care Metrorrhagia Desire for [2] No family history on file. [3] Current Outpatient Medications on File Prior to Visit Medication Sig Dispense Refill albuterol 108 (90 Base) MCG/ACT inhaler Inhale 2 puffs every 4 (four) hours if needed for wheezing or shortness of breath. 18 g 1 fluticasone (Flonase Allergy Relief) 50 MCG/ACT nasal spray Administer 1 spray into each nostril Once per day. Shake gently. Before first use, prime pump. After use, clean tip and replace cap. 16 g 12 hydrocortisone (Anusol-HC) 2.5 % rectal cream Insert into the rectum 2 times daily. 28 g 0 Spacer/Aero-Holding Chambers (OptiChamber Danna) misc 1 each every 4 (four) hours if needed (asthma). 1 each 0 No current facility-administered medications on file prior to visit. documented in this encounter Miscellaneous Notes * Assessment & Plan Note - Delaney Quinonez MD - 01/01/2025 12:55 PM EDT Associated Problem(s): Encounter for preventive care See HPI * Assessment & Plan Note - Delaney Quinonez MD - 01/01/2025 12:55 PM EDT Associated Problem(s): Metrorrhagia Blood work ordered and I will order a pelvic ultrasound patient will be contacted with results * Assessment & Plan Note - Delaney Quinonez MD - 01/01/2025 12:55 PM EDT Associated Problem(s): Desire for Counseling done today, I will prescribe for patient vitamins documented in this encounter Plan of Treatment Scheduled Orders Name Type Priority Associated Diagnoses Orde r Schedule Us Pelvis complete Imaging Routine Metrorrhagia Expected: 01/01/2025, Expires: 01/01/2026 documented as of this encounter Procedures Procedure Name Priority Date/Time Associated Diagnosis Comments VITAMIN D,25-OH,TOTAL,IA Routine 01/01/2025 10:05 AM EDT Metrorrhagia TSH W/REFLEX TO FT4 Routine 01/01/2025 1 0:05 AM EDT Metrorrhagia CBC WITH AUTO DIFFERENTIAL Routine 01/01/2025 10:05 AM EDT Metrorrhagia HEPATITIS C AB W/REFL TO HCV RNA, QN, PCR Routine 01/01/2025 10:05 AM EDT Metrorrhagia HIV 1/2 ANTIGEN/ANTIBODY, FOURTH GENERATION W/RFL Routine 01/01/2025 10:05 AM EDT Metrorrhagia HEMOGLOBIN A1C Routine 01/01/2025 10:05 AM EDT Metrorrhagia LIPID PANEL, STANDARD Routine 01/01/2025 10:05 AM EDT Metrorrhagia COMPREHENSIVE METABOLIC PANEL Routine 01/01/2025 10:05 AM EDT Metrorrhagia documented in this encounter Results * TSH with Reflex to Free T4 (01/01/2025 10:05 AM EDT) TSH reflex Free T4 1.08 0.32 - 4.0 uIU/mL [facility] Blood Venous blood specimen / Unknown 01/01/2025 10:05 AM EDT 01/01/2025 11:27 AM EDT us Delaney Quinonez MD LAB BLOOD ORDERABLES Final Result [facility] [address] [place] [phone] * (ABNORMAL) Vitamin D, 25-Hydroxy, Total, Immunoassay (01/01/2025 10:05 AM EDT) Vitamin D 25-OH Total 25.2(L) >30 ng/mL [facility] Comment: Health Based Reference Values*< 20 ng/mL Luvdcwdsp70-28 ng/mL Insufficient> 30 ng/mL Sufficient*Ari LAY. N Engl J Med. 2007;357:266-280There is no well-established upper level of normal vitamin Dlevels. Some laboratories use 50 ng/mL as an upper limit ofnormal. However, toxicity is patient-dependent and may occurat any level. Careful correlation with the patient'spresentation is necessary and, if there is concern forvitamin D toxicity, treatment should be consideredirrespective of the serum level.Care must be taken in interpreting Vitamin D results fromdifferent laboratories and methodologies. Published datademonstrated that results from patients undergoinghemodialysis may show a negative bias when tested withvarious automated 25-OH vitamin D assays when compared toLC-MS/MS.When testing samples from patients whose predominant form ofVitamin D is Vitamin D2, such as patients receiving VitaminD2 supplementation, results that are subtherapeutic shouldbe confirmed with another method such as LC-MS/MS. Blood Venous blood specimen / Unknown 01/01/2025 10:05 AM EDT 01/01/2025 11:27 AM EDT us Delaney Quinonez MD LAB BLOOD ORDERABLES Final Result [facility] [address] [place] [phone] [phone] * (ABNORMAL) Lipid Panel, Standard (01/01/2025 10:05 AM EDT) Triglycerides 54 <150 mg/dL [facility] Comment:Desirable Triglyceri de: less than 150 mg/dLBorderline High Triglyceride 150-199 mg/dLHigh Triglyceride: 200-499 mg/dLVery High Triglyceride: greater than or equal to 5OO mg/dL Cholesterol 122 <200 mg/dL [facility] Comment:Desirable Cholestero l: less than 200 mg/dLBorderline High Cholesterol: 200-239 mg/dLHigh Cholesterol: greater than 239 mg/dL LDL Cholesterol Calculated 72 <100 mg/dL [facility] Comment:Desirable LDL: less than 100 mg/dLNear Optimal/Above Optimal LDL: 110- 129 mg/dLBorderline High LDL: 130-159 mg/dLHigh LDL: 160-189 mg/dLVery High LDL: greater than or equal to 190 mg/dL HDL Cholesterol 40(L) >40 mg/dL [facility] Comment:Desirable HDL: great er than 40 mg/dL Note: This HDL assay may give artificially low results in patients with liver disease. Blood Venous blood specimen / Unknown 01/01/2025 10:05 AM EDT 01/01/2025 11:27 AM EDT us Delaney Quinonez MD LAB BLOOD ORDERABLES Final Result Performing Organization Address City/[facility] Co de Phone Number [facility] [address] [place] [phone] * Hepatitis C Antibody with Reflex to HCV, RNA, Quantitative, Real-Time PCR (01/01/2025 10:05 AM EDT) Hepatitis C Antibody Nonreactive Nonreactive [facility] Comment:Antibodies to HCV no t detected; does not exclude early acuteHCV infection. Blood Venous blood specimen / Unknown 01/01/2025 10:05 AM EDT 01/01/2025 11:27 AM EDT us Delaney Quinonez MD LAB BLOOD ORDERABLES Final Result Performing Organization Address [facility] Co de Phone Number [facility] [address] [place] [phone] * HIV-1/2 Antigen and Antibodies, Fourth Generation, with Reflexes (01/01/2025 10:05 AM EDT) HIV AB/AG Nonreactive Nonreactive [facility] Comment:HIV-1 p24 Ag and/or HIV-1/HIV-2 Ab not detected.A test result that is nonreactive does not exclude thepossibility of exposure to or infection with HIV-1 and/orHIV-2. Nonreactive results in this assay for individualswith prior exposure to HIV-1 and/or HIV-2 may be due toantigen and antibody levels that are below the limit ofdetection of this assay.The [id number] HIV Ag/Ab Combo assay result andsupplemental assay results should be interpreted inconjunction with the patient's clinical presentation,history and other laboratory results. If the results areinconsistent with clinical evidence, additional testing issuggested to confirm the result. Blood Venous blood specimen / Unknown 01/01/2025 10:05 AM EDT 01/01/2025 11:27 AM EDT us Delaney Quinonez MD LAB BLOOD ORDERABLES Final Result [facility] [address] [place] [phone] * Hemoglobin A1c (01/01/2025 10:05 AM EDT) Hemoglobin A1c 4.9 <6.0 % [facility] Comment:Hemoglobin A1C Refer ence Range Adults: 4.8 - 6.0 % Non diabetic: < 6.0 % Goal: < 7.0 %Additional Action Suggested: > 8.0 %Note: Hemoglobin A1c results are invalid for patients with abnormal amounts of HbF. Blood transfusions may impact the HbA1c concentration in the patient sample. Estimated Average Glucose 94 mg/dL [facility] Comment:eAG = Estimated ave rage glucose which is %A1C expressed asaverage glucose, using the formula of the J4G-[id number] Glucose study (ADAG), Diabetes Care, Vol.31,#8,Aug. 2007 Blood Venous blood specimen / Unknown 01/01/2025 10:05 AM EDT 01/01/2025 11:27 AM EDT us Delaney Quinonez MD LAB BLOOD ORDERABLES Final Result Performing Organization Address City/[facility]/ZIP Co de Phone Number [facility] [address] [place] [phone] * (ABNORMAL) Comprehensive Metabolic Panel (01/01/2025 10:05 AM EDT) Sodium 140 135 - 145 mmol/L [facility] Potassium 4.1 3.3 - 5.1 mmol/L [facility] Chloride 109(H) 96 - 108 mmol/L [facility] Carbon Dioxide 25 22 - 29 mmol/L [facility] Anion Gap 10(L) 12 - 20 [facility] Urea Nitrogen (BUN) 13 9 - 16 mg/dL [facility] Creatinine, Serum 0.64 0.5 - 1.4 mg/dL [facility] Estimated Glomerular Filt Rate >60 [facility] Comment:Chronic Kidney Disea se: Estimated GFR < 60 mL/min/1.98b8Vorpza Kidney Disease: Estimated GFR < 15 mL/min/1.73m2 Glucose 85 60 - 115 mg/dL [facility] Calcium 8.8 8.4 - 10.2 mg/dL [facility] Bilirubin, Total 0.6 0.0 - 1.0 mg/dL [facility] Aspartate Amino Transferase 30 5 - 31 U/L [facility] Alanine Aminotransferase 15 0 - 31 U/L [facility] Total Protein 7.2 6.5 - 8.0 g/dL [facility] Albumin Level 4.6 3.5 - 5.0 g/dL [facility] Alkaline Phosphatase 44 39 - 117 U/L [facility] Blood Venous blood specimen / Unknown 01/01/2025 10:05 AM EDT 01/01/2025 11:27 AM EDT us Delaney Quinonez MD LAB BLOOD ORDERABLES Final Result Performing Organization Address City/[facility]/ZIP Co de Phone Number [facility] [address] [place] [phone] [phone] * CBC auto differential (01/01/2025 10:05 AM EDT) White Blood Count 5.6 4.8 - 10.8 X10*3/uL [facility] Red Blood Count 4.34 4.20 - 5.50 X10*6/uL [facility] Hemoglobin 12.3 12.0 - 16.0 g/dl [facility] Hematocrit 38.0 37.0 - 47.0 % [facility] Mean Corpuscular Volume 87.6 80.0 - 98.0 fL [facility] Mean Corpuscular Hemoglobin 28.3 27.0 - 33.0 pg [facility] Mean Corpuscular HGB Conc 32.4 31.0 - 35.0 g/dl [facility] Red Cell Distribution Width 12.3 11.0 - 16.0 % [facility] Platelet Count 210 160 - 400 X10*3/uL [facility] Mean Platelet Volume 12.2 9.4 - 12.3 fL [facility] Neutrophils Percent Auto 56.6 45 - 73 % [facility] Imm Gran Pct Auto 0.4 0.0 - 0.4 % [facility] Lymphocytes Percent Auto 33.2 20 - 40 % [facility] Monocytes Percent Auto 6.8 2 - 11 % [facility] Eosinophils Percent Auto 2.1 0 - 4 % [facility] Basophils Percent Auto 0.9 0 - 2 % [facility] NRBC Pct Auto 0.0 0.0 - 0.2 /100WBC [facility] Neutrophils Absolute Auto 3.2 2.0 - 8.3 x10*3/uL [facility] Imm Gran Abs Auto 0.02 0.00 - 0.03 X10*3/uL [facility] Lymphocytes Absolute Auto 1.9 1.2 - 4.9 X10*3/uL [facility] Monocytes Absolute Auto 0.4 0.1 - 1.2 X10*3/uL [facility] Eosinophils Absolute Auto 0.1 0.0 - 0.4 X10*3/uL [facility] Basophils Absolute Auto 0.1 0.0 - 0.2 X10*3/uL [facility] NRBC Abs Auto 0.000 0.0 - 0.012 X10*3/uL [facility] Blood Venous blood specimen / Unknown 01/01/2025 10:05 AM EDT 01/01/2025 11:27 AM EDT us Delaney Quinonez MD LAB BLOOD ORDERABLES Final Result [facility] [address] [place] [phone] documented in this encounter Visit Diagnoses Diagnosis Encounter for preventive care- Primary Dietary counseling Dietary surveillance and counseling Exercise counseling Metrorrhagia Desire for documented in this encounter Additional Health Concerns Assessment Noted Time PHQ-9 Depression Total Score: 0 02/01/20 23 2:56 PM EST documented as of this encounter Care Teams Section Maintainer Relationship Specialty Start Date End Date Delaney Long MD [address] [place] [phone] PCP - General Family Medicine 02/28/20 documented as of this encounter
--- OUTSIDE RECORDS SUMMARY | 2025-01-16 21:45 | XMS_ITS | Encounter Summary ---
Author Organization [employer] Address [address] [facility] 7t [place] [address] Care Team Providers Care Operational Trainer Name Role Phone Delaney Long MD Primary Care Provide r Reason for Visit * Reason Onset Date Comments TB Test 01/15/2025 Encounter Details Date Type Department Care Team ([facility] st Contact Info) Description 01/15/2025 Telephone [facility] MEDICINE [address] [place], [place] [phone] Delaney Long MD [address] [place] [address] TB Test Social History Tobacco Use Types Packs/Day Years [...] encounter Miscellaneous Notes * Telephone Encounter - Neena Valentin RN - 01/15/2025 10:15 AM EDT Previous neg testing June 2023. Order placed. TC placed to pt., she will come to lab and is aware results take 3-5 days. Pt. Will access results via [employer] * Telephone Encounter - Otis Saenz - 01/15/2025 9:55 AM EDT Tc from pt requesting a TB test stating she needs it for work. Please contact pt at [phone]. documented in this encounter Plan of Treatment Scheduled Orders Name Type Priority Associated Diagnoses Orde r Schedule T-SPOT .TB Lab Routine Screening examination for pulmonary tuberculosis Expected: 01/15/2025 (Approximate), Expires: 01/15/2026 documented as of this encounter Visit Diagnoses Diagnosis Screening examination for pulmonary tuberculosis documented in this encounter Additional Health Concerns Assessment Noted Time PHQ-9 Depression Total Score: 0 01/08/20 25 8:52 AM EDT documented as of this encounter Care Teams Operational Trainer Relationship Specialty Start Date End Date Delaney Long MD [address] [place] [address] PCP - General Family Medicine 02/28/20 documented as of this encounter
--- OUTSIDE RECORDS SUMMARY | 2025-01-16 21:45 | XMS_ITS | Clinical Summary ---
Author Organization [employer] Address [address] [place] [address] 7[address] [place] [address] Care Team Providers Care Supervisor Shipping Room Name Role Phone Delaney Long MD Primary [...] Active Problems Problem Noted Date Diagnosed Date Encounter for Papanicolaou smear of cervix 01/10 Assessment & Plan (01/10/2025 2:30 PM EDT): PAP smear and pelvic exam done Patient will be contacted with results Vitamin D deficiency 01/07/2025 Assessment & Plan (01/07/2025 9:13 AM EDT): I advised to take supplements of vitamin D during winter 1000 units daily Metrorrhagia 01/01/2025 Assessment & Plan (01/07/2025 9:13 AM EDT): TSH is normal, hemoglobin is normal patient is waiting for her ultrasound to be done I will contact her with results as soon as I get them Assessment & Plan (01/01/2025 12:55 PM EDT): Blood work ordered and I will order a pelvic ultrasound patient will be contacted with results Desire for 01/01/2025 Assessment & Plan (01/01/2025 12:55 PM EDT): Counseling done today, I will prescribe for patient vitamins Other constipation 01/31/2023 Assessment & Plan (01/31/2023 3:42 PM EST): Drink more water, walk more, include more fiber on the diet Grade I hemorrhoids 01/31/2023 Encounter for preventive care 01/31/2023 Assessment & Plan (01/01/2025 12:55 PM EDT): See HPI Assessment & Plan (01/31/2023 3:42 PM EST): See HPI Encounters Date Type Department Care Team Description 01/15/2025 Telephone [facility] [place] [address] Delaney Long MD TB Test 01/10/2025 10:15 AM EDT Procedure Visit [facility] [place] [address] Delaney Long MD Encounter for Papanicolaou smear of cervix 01/10/2025 Travel 01/09/2025 Telephone [facility] [place] [address] Delaney Long MD CHART PREP 01/07/2025 9:00 AM EDT Telemedicine [address] [address] Delaney Long MD Metrorrhagia (Primary Dx); Vitamin D deficiency 01/07/2025 Travel 01/05/[address] [address] Delaney Long MD Chart Prep 01/01/2025 9:30 AM EDT Office Visit [address] [address] Delaney Long MD Encounter for preventive care (Primary Dx); Dietary counseling; Exercise counseling; Metrorrhagia; Desire for 01/01/2025 Travel 12/31/[address] [address] Delaney Long MD Chart Prep 12/25/2024 Patient Outreach [address] [address] Delaney Long MD Pre-visit Planning ([facility] screening completed on 10/08/2024) from Last 3 Months Immunizations Immunization Administration Dates Next Due DTaP 11/06/2001, 9,01/28/1999,05/07,01/01/1998 HPV, Quadrivalent 06/08/2013,03/15/2012,08/16/19 10 Hep A, ped/adol, 2 dose 05/29/2015 Hep B, Adolescent or Pediatric 05/07/1998,1997,01/01/1998 Hib (HbOC) 01/28/1999, 9,03/05/1998,01/01 IPV 11/07/2007, 9,03/05/1998,01/01 Influenza injectable [...] Sign Reading Time Taken Comments Blood Pressure 110/74 01/10/2025 10:32 AM EDT Pulse 72 01/10/2025 10:32 AM EDT Temperature 36.4 C (97.5 F) 01/10/2025 10:32 AM EDT Respiratory Rate 15 01/10/2025 10:32 AM EDT Oxygen Saturation 99% 01/10/2025 10:32 AM EDT Inhaled Oxygen Concentration - - Weight 70 kg (154 lb 6.4 oz) 01/10/2025 10:32 AM EDT Height 160 cm (5' 3 ) 01/10/2025 10:32 AM EDT Body Mass Index 27.35 01/10/2025 10:32 AM EDT Plan of Treatment Health Maintenance Due Date Last Done Comments Family Planning (PISQ) 2012 Hepatitis A Vaccines (2 of 2 - 2-dose series) 11/29/2015 05/29/2015 COVID-19 Vaccine ( season) 2024 Influenza Vaccine (#1) 2024 , 12/23/2022, 12/11/2021, Additional history exists SDOH Screening 10/08/2025 10/08/2024 Depression Screening 01/07/2026 01/07/2025, 01/08/20 25 Alcohol/Substance Use Screening 01/10/2026 01/10/2025 Disability Screening 01/10/2026 01/10/2025 Tobacco Screening 01/10/2026 01/10/2025 DTaP/Tdap/Td Vaccines (7 - Td or Tdap) 12/24/2026 12/24/2016, 08/15/2009, 11/06/2001, Additional history exists Pap Smear 01/11/2028 01/10/2025, 11/26, 10/10/2019 Zoster Vaccines (1 of 2) 10/26/2047 RSV Patients and Patients Aged 60 years or older (1 - 1-dose 75+ series) 2072 Hepatitis B Vaccines Completed 05/07/1998, 03/05/1998, 01/01/1998 HIB Vaccines Completed 01/28/1999, 04/28, 03/05/1998, Additional history exists IPV Vaccines Completed 11/07/2007, 04/28, 03/05/1998, Additional history exists HPV Vaccines Completed 06/08/2013, 02/25, 08/15/2009 Meningococcal Vaccine Completed 05/29/2015, 010 HIV Screening Completed 01/01/2025, 07/09/2021 Hepatitis C Screening Completed 01/01/2025, 022 Meningococcal B Vaccine Aged Out No l [...] Procedure Name Priority Date/Time Associated Diagnosis Comments PAP SMEAR Routine 01/10/2025 1:49 PM EDT Encounter for Papanicolaou smear of cervix TSH W/REFLEX TO FT4 Routine 01/01/2025 1 0:05 AM EDT Metrorrhagia VITAMIN D,25-OH,TOTAL,IA Routine 01/01/2025 10:05 AM EDT Metrorrhagia LIPID PANEL, STANDARD Routine 01/01/2025 10:05 AM EDT Metrorrhagia HEPATITIS C AB W/REFL TO HCV RNA, QN, PCR Routine 01/01/2025 10:05 AM EDT Metrorrhagia HIV 1/2 ANTIGEN/ANTIBODY, FOURTH GENERATION W/RFL Routine 01/01/2025 10:05 AM EDT Metrorrhagia HEMOGLOBIN A1C Routine 01/01/2025 10:05 AM EDT Metrorrhagia COMPREHENSIVE METABOLIC PANEL Routine 01/01/2025 10:05 AM EDT Metrorrhagia CBC WITH AUTO DIFFERENTIAL Routine 01/01/2025 10:05 AM EDT Metrorrhagia from Last 3 Months Results * Pap Smear (01/10/2025 1:49 PM EDT) Swab Cervical swab / Unknown 01/10/2025 1:49 PM EDT 01/11/2025 6:00 AM EDT [facility] - 01/16/2025 1:48 PM EDT ----- ------- Name: Teena Celestin Age/Sex: 29/F : 1995 Unit#: [id number] Attend Dr: Re01/10/25 Status: PRE REF Location: HO.LNP Disch: ----- ------- SPEC : [id number] RECD: 01/11/25 STATUS: MARQUISE LISA NUM: [id number] ROSALIE: 01/10/[address] [facility] [address]: Delaney Long MD ENTERED: 01/11/25 SP TYPE: Pap Smr [facility] DR: ORDERED: Pap Smear, PAP path review Interpretation General Category: Negative for intraepithelial lesion/malignancy. Adequacy: Endocervical component present. Interpretation: Mild inflammation with associated cellular changes. Shift in vaginal law. Clinical Information LMP: 01/01/25 Previous PAP test: Normal Other surgery: Other history: Material Received ThinPrep-Cervical ----- ------- Signed (signature on file) Godfrey Brady MD 01/16/25 1348 ----- ------- END OF REPORT us Delaney Quinonez MD LAB CYTOLOGY ORDERABL ES Final Result [facility] [address] [place] [phone] * (ABNORMAL) Vitamin D, 25-Hydroxy, Total, Immunoassay (01/01/2025 10:05 AM EDT) Vitamin D 25-OH Total 25.2(L) >30 ng/mL [facility] Comment: Health Based Reference Values*< 20 ng/mL Bbpeelsuy32-21 ng/mL Insufficient> 30 ng/mL Sufficient*Ari LAY. N [...] BLOOD ORDERABLES Final Result Performing Organization Address [facility]/ZIP Co de Phone Number [facility] [address] [place] [phone] * TSH with Reflex to Free T4 (01/01/2025 10:05 AM EDT) TSH reflex Free T4 1.08 0.32 - 4.0 uIU/mL [facility] Blood Venous blood specimen / Unknown 01/01/2025 10:05 AM EDT 01/01/2025 11:27 AM EDT us Delaney Quinonez MD LAB BLOOD ORDERABLES Final Result Performing Organization Address [facility] Co de Phone Number [facility] [address] [place] [phone] * CBC auto differential (01/01/2025 10:05 AM EDT) White Blood Count 5.6 4.8 - 10.8 X10*3/uL [facility] Red Blood Count 4.34 4.20 - 5.50 X10*6/uL [facility] Hemoglobin 12.3 12.0 - 16.0 g/dl [facility] Hematocrit 38.0 37.0 - 47.0 % [facility] Mean Corpuscular Volume 87.6 80.0 - 98.0 fL [facility] Mean Corpuscular Hemoglobin 28.3 27.0 - 33.0 pg [facility] Mean Corpuscular HGB Conc 32.4 31.0 - 35.0 g/dl [facility] Red Cell Distribution Width 12.3 11.0 - 16.0 % [facility] Platelet Count 210 160 - 400 X10*3/uL [facility] Mean Platelet Volume 12.2 9.4 - 12.3 fL [facility] Neutrophils Percent Auto 56.6 45 - 73 % [facility] Imm Gran Pct Auto 0.4 0.0 - 0.4 % [facility] Lymphocytes Percent Auto 33.2 20 - 40 % [facility] Monocytes Percent Auto 6.8 2 - 11 % [facility] Eosinophils Percent Auto 2.1 0 - 4 % [facility] Basophils Percent Auto 0.9 0 - 2 % [facility] NRBC Pct Auto 0.0 0.0 - 0.2 /100WBC [facility] Neutrophils Absolute Auto 3.2 2.0 - 8.3 x10*3/uL [facility] Imm Gran Abs Auto 0.02 0.00 - 0.03 X10*3/uL [facility] Lymphocytes Absolute Auto 1.9 1.2 - 4.9 X10*3/uL [facility] Monocytes Absolute Auto 0.4 0.1 - 1.2 X10*3/uL [facility] Eosinophils Absolute Auto 0.1 0.0 - 0.4 X10*3/uL [facility] Basophils Absolute Auto 0.1 0.0 - 0.2 X10*3/uL [facility] NRBC Abs Auto 0.000 0.0 - 0.012 X10*3/uL [facility] Blood Venous blood specimen / Unknown 01/01/2025 10:05 AM EDT 01/01/2025 11:27 AM EDT us Delaney Quinonez MD LAB BLOOD ORDERABLES Final Result [facility] [address] [place] [phone] * Hepatitis C Antibody with Reflex to HCV, RNA, Quantitative, Real-Time PCR (01/01/2025 10:05 AM EDT) Pathologist [facility] Hepatitis C Antibody Nonreactive Nonreactive [facility] Comment:Antibodies to HCV no t detected; does not exclude early acuteHCV infection. Blood Venous blood specimen / Unknown 01/01/2025 10:05 AM EDT 01/01/2025 11:27 AM EDT us Delaney Quinonez MD LAB BLOOD ORDERABLES Final Result Performing Organization Address [facility] Co de Phone Number [facility] [address] [place] [phone] * HIV-1/2 Antigen and Antibodies, Fourth Generation, with Reflexes (01/01/2025 10:05 AM EDT) [facility] HIV AB/AG Nonreactive Nonreactive [facility] Comment:HIV-1 p24 Ag and/or HIV-1/HIV-2 Ab not detected.A test result that is nonreactive does not exclude thepossibility of exposure to or infection with HIV-1 and/orHIV-2. Nonreactive results in this assay for individualswith prior exposure to HIV-1 and/or HIV-2 may be due toantigen and antibody levels that are below the limit ofdetection of this assay.The AA [employer] HIV Ag/Ab Combo assay result andsupplemental assay results should be interpreted inconjunction with the patient's clinical presentation,history and other laboratory results. If the results areinconsistent with clinical evidence, additional testing issuggested to confirm the result. Blood Venous blood specimen / Unknown 01/01/2025 10:05 AM EDT 01/01/2025 11:27 AM EDT us Delaney Quionnez MD LAB BLOOD ORDERABLES Final Result Performing Organization Address [facility] Co de Phone Number [facility] [address] [place] [phone] * Hemoglobin A1c (01/01/2025 10:05 AM EDT) Hemoglobin A1c 4.9 <6.0 % [facility] Comment:Hemoglobin A1C Refer ence Range Adults: 4.8 - 6.0 % Non diabetic: < 6.0 % Goal: < 7.0 %Additional Action Suggested: > 8.0 %Note: Hemoglobin A1c results are invalid for patients with abnormal amounts of HbF. Blood transfusions may impact the HbA1c concentration in the patient sample. Estimated Average Glucose 94 mg/dL [facility] Comment:eAG = Estimated ave rage glucose which is %A1C expressed asaverage glucose, using the formula of the H6G-HchdsxrLvbujob Glucose study (ADAG), Diabetes Care, Vol.31,#8,Oct. 2007 Blood Venous blood specimen / Unknown 01/01/2025 10:05 AM EDT 01/01/2025 11:27 AM EDT us Delaney Quinonez MD LAB BLOOD ORDERABLES Final Result [facility] [address] [place] [phone] * (ABNORMAL) Lipid Panel, Standard (01/01/2025 10:05 AM EDT) Triglycerides 54 <150 mg/dL [facility] Comment:Desirable Triglyceri de: less than 150 mg/dLBorderline High Triglyceride 150-199 mg/dLHigh Triglyceride: 200-499 mg/dLVery High Triglyceride: greater than or equal to 5OO mg/dL Cholesterol 122 <200 mg/dL [facility] Comment:Desirable Cholestero l: less than 200 mg/dLBorderline High Cholesterol: 200-239 mg/dLHigh Cholesterol: greater than 239 mg/dL LDL Cholesterol Calculated 72 <100 mg/dL [facility] Comment:Desirable LDL: less than 100 mg/dLNear Optimal/Above Optimal LDL: 110- 129 mg/dLBorderline High LDL: 130-159 mg/dLHigh LDL: 160-189 mg/dLVery High LDL: greater than or equal to 190 mg/dL HDL Cholesterol 40(L) >40 mg/dL [facility] Comment:Desirable HDL: great er than 40 mg/dL Note: This HDL assay may give artificially low results in patients with liver disease. Blood Venous blood specimen / Unknown 01/01/2025 10:05 AM EDT 01/01/2025 11:27 AM EDT us Delaney Quinonez MD LAB BLOOD ORDERABLES Final Result [facility] [address] [place], [place] [phone] * (ABNORMAL) Comprehensive Metabolic Panel (01/01/2025 10:05 AM EDT) Sodium 140 135 - 145 mmol/L [facility] Potassium 4.1 3.3 - 5.1 mmol/L [facility] Chloride 109(H) 96 - 108 mmol/L [facility] Carbon Dioxide 25 22 - 29 mmol/L [facility] Anion Gap 10(L) 12 - 20 [facility] Urea Nitrogen (BUN) 13 9 - 16 mg/dL [facility] Creatinine, Serum 0.64 0.5 - 1.4 mg/dL [facility] Estimated Glomerular Filt Rate >60 [facility] Comment:Chronic Kidney Disea se: Estimated GFR < 60 mL/min/1.12h4Osydbb Kidney Disease: Estimated GFR < 15 mL/min/1.73m2 Glucose 85 60 - 115 mg/dL [facility] Calcium 8.8 8.4 - 10.2 mg/dL [facility] Bilirubin, Total 0.6 0.0 - 1.0 mg/dL [facility] Aspartate Amino Transferase 30 5 - 31 U/L [facility] Alanine Aminotransferase 15 0 - 31 U/L [facility] Total Protein 7.2 6.5 - 8.0 g/dL [facility] Albumin Level 4.6 3.5 - 5.0 g/dL [facility] Alkaline Phosphatase 44 39 - 117 U/L [facility] Blood Venous blood specimen / Unknown 01/01/2025 10:05 AM EDT 01/01/2025 11:27 AM EDT Delaney Quinonez MD LAB BLOOD ORDERABLES Final Result [facility] [address] [place] [phone] from Last 3 Months Insurance , [address] [place] [address] Care Teams Supervisor Shipping Room Relationship Specialty Start Date End Date Delaney Long MD [address] [place] [phone] PCP - General Family Medicine 02/28/20
[2025-01-19 00:43] LABS: TS Negative Control Passed; TS Panel A 0; TS Panel B 0; TS Positive Control Passed; TSpotTB Negative (Negative)
== END 2025-01-16 15:39 | disposition home or self-care (01) ==
LOC: HO.HHCL 15:38
PROVIDERS: PCP Internal Medicine; Visit Provider Internal Medicine
DX: Z11.1 Encounter for screening for respiratory tuberculosis (principal)
CPT/HCPCS: 36415; 86481

== ENCOUNTER 2025-01-30 08:38 | Outpatient (REF) | payer OTHER, SELFPAY ==
--- OUTSIDE RECORDS SUMMARY | 2025-01-30 09:02 | XMS_ITS | Clinical Summary ---
Author Organization [employer] Address [address] [place] [address] [address] [place] [address] Care Team Providers Care Room Inspector Name Role Phone Delaney Long MD Primary [...] Encounters Date Type Department Care Team Description 01/29/[address] [address] Delaney Long MD Lab Orders 01/23/2025 Results Follow-Up [address] [address] Delaney Long MD Pap Smear 01/15/2025 Telephone [facility] [address] [place] [address] Delaney Long MD TB Test 01/10/2025 10:15 AM EDT Procedure Visit [address] [address] Delaney Long MD Encounter for Papanicolaou smear of cervix 01/10/2025 Travel 01/09/[address] [address] Delaney Long MD CHART PREP 01/07/2025 9:00 AM EDT Telemedicine [address] [address] Delaney Long MD Metrorrhagia (Primary Dx); Vitamin D deficiency 01/07/2025 Travel 01/05/[address] [address] Delaney Long MD Chart Prep 01/01/2025 9:30 AM EDT Office Visit [address] [address] Delaney Long MD Encounter for preventive care (Primary Dx); Dietary counseling; Exercise counseling; Metrorrhagia; Desire for 01/01/2025 Travel 12/31/[address] [address] Delaney Long MD Chart Prep 12/25/2024 Patient Outreach [address] [address] Delaney Long MD Pre-visit Planning ([facility] screening completed on 10/08/2024) from Last [...] Results * T-SPOT??.TB (01/16/2025 3:40 PM EDT) [facility] T Spot TB Negative Negative [facility] Comment:A negative test resu lt [...] as aquantitative test. TS PANEL A 0 [facility] TS PANEL B 0 [facility] Negative Control Passed [facility] Positive Control Passed [facility] Comment:For additional infor trung, please refer tohttp://education.Taplet/faq/MWX734(This link is being provided for informational/educational purposes only.)THIS TEST WAS PERFORMED AT:[email or web address] [id number] [place] [address]AUUIKUC W. MASON,MD,PHD 01/16/2025 3:40 PM EDT 01/16/2025 4:05 PM EDT us Delaney Quinonez MD LAB BLOOD ORDERABLES Final Result [facility] [address] [place] [phone] * Pap Smear (01/10/2025 1:49 PM EDT) Swab Cervical swab / Unknown 01/10/2025 1:49 PM EDT 01/11/2025 6:00 AM EDT Narrative [facility] - 01/16/2025 1:48 PM EDT ----- ------- Name: Teena Celestin Age/Sex: 29/F : 1995 Unit#: [id number] Attend Dr: Re01/10/25 Status: PRE REF Location: [facility] Disch: ----- ------- SPEC : [id number] RECD: 01/11/25 STATUS: MARQUISE GONZALEZ NUM: [id number] ROSALIE: 01/10/25-[address] [facility] [address]: Delaney Long MD ENTERED: 01/11/25-27 SP TYPE: Pap Smr WENDY DEWITT: ORDERED: Pap Smear, PAP path review Interpretation [...] MD LAB CYTOLOGY ORDERABL ES Final Result [facility] [address] [place] [phone] * (ABNORMAL) Vitamin D, 25-Hydroxy, Total, Immunoassay (01/01/2025 10:05 AM EDT) Vitamin D 25-OH Total 25.2(L) >30 ng/mL [facility] Comment: Health Based Reference Values*< 20 ng/mL Gskfvpduo28-14 ng/mL Insufficient> 30 ng/mL Sufficient*Ari LAY. N [...] BLOOD ORDERABLES Final Result Performing Organization Address City/[facility]/ZIP Co de Phone Number [facility] [address] [place] [phone] * TSH with Reflex to Free T4 (01/01/2025 10:05 AM EDT) TSH reflex Free T4 1.08 0.32 - 4.0 uIU/mL [facility] Blood Venous blood specimen / Unknown 01/01/2025 10:05 AM EDT 01/01/2025 11:27 AM EDT us Delaney Quinonez MD LAB BLOOD ORDERABLES Final Result Performing Organization Address [facility] Co de Phone Number [facility] [address] [place] [phone] * CBC auto differential (01/01/2025 10:05 AM EDT) White Blood Count 5.6 4.8 - 10.8 X10*3/uL [facility] Red Blood Count 4.34 4.20 - 5.50 X10*6/uL [facility] Hemoglobin 12.3 12.0 - 16.0 g/dl [facility] Hematocrit 38.0 37.0 - 47.0 % [facility] Mean Corpuscular Volume 87.6 80.0 - 98.0 fL [facility] Mean Corpuscular Hemoglobin 28.3 27.0 - 33.0 pg [facility] Mean Corpuscular HGB Conc 32.4 31.0 - 35.0 g/dl [facility] Red Cell Distribution Width 12.3 11.0 - 16.0 % [facility] Platelet Count 210 160 - 400 X10*3/uL [facility] Mean Platelet Volume 12.2 9.4 - 12.3 fL [facility] Neutrophils Percent Auto 56.6 45 - 73 % [facility] Imm Gran Pct Auto 0.4 0.0 - 0.4 % [facility] Lymphocytes Percent Auto 33.2 20 - 40 % [facility] Monocytes Percent Auto 6.8 2 - 11 % [facility] Eosinophils Percent Auto 2.1 0 - 4 % [facility] Basophils Percent Auto 0.9 0 - 2 % [facility] NRBC Pct Auto 0.0 0.0 - 0.2 /100WBC [facility] Neutrophils Absolute Auto 3.2 2.0 - 8.3 x10*3/uL [facility] Imm Gran Abs Auto 0.02 0.00 - 0.03 X10*3/uL [facility] Lymphocytes Absolute Auto 1.9 1.2 - 4.9 X10*3/uL [facility] Monocytes Absolute Auto 0.4 0.1 - 1.2 X10*3/uL [facility] Eosinophils Absolute Auto 0.1 0.0 - 0.4 X10*3/uL [facility] Basophils Absolute Auto 0.1 0.0 - 0.2 X10*3/uL [facility] NRBC Abs Auto 0.000 0.0 - 0.012 X10*3/uL [facility] Blood Venous blood specimen / Unknown 01/01/2025 10:05 AM EDT 01/01/2025 11:27 AM EDT Delaney Quinonez MD LAB BLOOD ORDERABLES Final Result Performing Organization Address [facility]/ZIP Co de Phone Number [facility] [address] [place] [phone] * Hepatitis C Antibody with Reflex to HCV, RNA, Quantitative, Real-Time PCR (01/01/2025 10:05 AM EDT) Hepatitis C Antibody Nonreactive Nonreactive [facility] Comment:Antibodies to HCV no t detected; does not exclude early acuteHCV infection. Blood Venous blood specimen / Unknown 01/01/2025 10:05 AM EDT 01/01/2025 11:27 AM EDT Delaney Quinonez MD LAB BLOOD ORDERABLES Final Result Performing Organization Address [facility] Co de Phone Number [facility] [address] [place] [phone] [phone] * HIV-1/2 Antigen and Antibodies, Fourth Generation, with Reflexes (01/01/2025 10:05 AM EDT) HIV AB/AG Nonreactive Nonreactive [facility] Comment:HIV-1 p24 Ag and/or HIV-1/HIV-2 Ab not detected.A test result that is nonreactive does not exclude thepossibility of exposure to or infection with HIV-1 and/orHIV-2. Nonreactive results in this assay for individualswith prior exposure to HIV-1 and/or HIV-2 may be due toantigen and antibody levels that are below the limit ofdetection of this assay.The [employer] HIV Ag/Ab Combo assay result andsupplemental assay results should be interpreted inconjunction with the patient's clinical presentation,history and other laboratory results. If the results areinconsistent with clinical evidence, additional testing issuggested to confirm the result. Blood Venous blood specimen / Unknown 01/01/2025 10:05 AM EDT 01/01/2025 11:27 AM EDT us Dealney Quinonez MD LAB BLOOD ORDERABLES Final Result Performing Organization Address [facility] Co de Phone Number [facility] [address] [place] [phone] * Hemoglobin A1c (01/01/2025 10:05 AM EDT) Hemoglobin A1c 4.9 <6.0 % [facility] Comment:Hemoglobin A1C Refer ence Range Adults: 4.8 - 6.0 % Non diabetic: < 6.0 % Goal: < 7.0 %Additional Action Suggested: > 8.0 %Note: Hemoglobin A1c results are invalid for patients with abnormal amounts of HbF. Blood transfusions may impact the HbA1c concentration in the patient sample. Estimated Average Glucose 94 mg/dL [facility] Comment:eAG = Estimated ave rage glucose which is %A1C expressed asaverage glucose, using the formula of the W8H-ThvpwseOgjeden Glucose study (ADAG), Diabetes Care, Vol.31,#8,Oct. 2007 Blood Venous blood specimen / Unknown 01/01/2025 10:05 AM EDT 01/01/2025 11:27 AM EDT us Delaney Quinonez MD LAB BLOOD ORDERABLES Final Result Performing Organization Address [facility] Co de Phone Number [facility] [address] [place] [phone] * (ABNORMAL) Lipid Panel, Standard (01/01/2025 10:05 AM EDT) Triglycerides 54 <150 mg/dL [facility] Comment:Desirable Triglyceri de: less than 150 mg/dLBorderline High Triglyceride 150-199 mg/dLHigh Triglyceride: 200-499 mg/dLVery High Triglyceride: greater than or equal to 5OO mg/dL Cholesterol 122 <200 mg/dL [facility] Comment:Desirable Cholestero l: less than 200 mg/dLBorderline High Cholesterol: 200-239 mg/dLHigh Cholesterol: greater than 239 mg/dL LDL Cholesterol Calculated 72 <100 mg/dL [facility] Comment:Desirable LDL: less than 100 mg/dLNear Optimal/Above Optimal LDL: 110- 129 mg/dLBorderline High LDL: 130-159 mg/dLHigh LDL: 160-189 mg/dLVery High LDL: greater than or equal to 190 mg/dL HDL Cholesterol 40(L) >40 mg/dL [facility] Comment:Desirable HDL: great er than 40 mg/dL Note: This HDL assay may give artificially low results in patients with liver disease. Blood Venous blood specimen / Unknown 01/01/2025 10:05 AM EDT 01/01/2025 11:27 AM EDT Delaney Quinonez MD LAB BLOOD ORDERABLES Final Result [facility] [address] [place] [phone] [phone] * (ABNORMAL) Comprehensive Metabolic Panel (01/01/2025 10:05 AM EDT) Sodium 140 135 - 145 mmol/L [facility] Potassium 4.1 3.3 - 5.1 mmol/L [facility] Chloride 109(H) 96 - 108 mmol/L [facility] Carbon Dioxide 25 22 - 29 mmol/L [facility] Anion Gap 10(L) 12 - 20 [facility] Urea Nitrogen (BUN) 13 9 - 16 mg/dL [facility] Creatinine, Serum 0.64 0.5 - 1.4 mg/dL [facility] Estimated Glomerular Filt Rate >60 [facility] Comment:Chronic Kidney Disea se: Estimated GFR < 60 mL/min/1.50e7Cmpygq Kidney Disease: Estimated GFR < 15 mL/min/1.73m2 Glucose 85 60 - 115 mg/dL [facility] Calcium 8.8 8.4 - 10.2 mg/dL [facility] Bilirubin, Total 0.6 0.0 - 1.0 mg/dL [facility] Aspartate Amino Transferase 30 5 - 31 U/L [facility] Alanine Aminotransferase 15 0 - 31 U/L [facility] Total Protein 7.2 6.5 - 8.0 g/dL [facility] Albumin Level 4.6 3.5 - 5.0 g/dL [facility] Alkaline Phosphatase 44 39 - 117 U/L [facility] Blood Venous blood specimen / Unknown 01/01/2025 10:05 AM EDT 01/01/2025 11:27 AM EDT Delaney Quinonez MD LAB BLOOD ORDERABLES Final Result [facility] [address] [place] [address] [phone] from Last 3 Months Insurance , [address] [place] [address] Care Teams Room Inspector Relationship Specialty Start Date End Date Delaney Long MD [address] [place] [address] PCP - General Family Medicine 02/28/20
--- OUTSIDE RECORDS SUMMARY | 2025-01-30 09:02 | XMS_ITS | Encounter Summary ---
Author Organization [employer] Address [address] [place] [address] Care Team Providers Care Pipe Line Walker Name Role Phone Delaney Long MD Primary Care Provide r Reason for Visit * Reason Onset Date Comments Lab Orders 01/29/2025 Encounter Details Date Type Department Care Team ([facility] Contact Info) Description 01/29/2025 Telephone [facility] [address] [place], [place] [id number] Delaney Long MD [address] [place] [address] Lab Orders Social History Tobacco Use Types Packs/Day Years [...] encounter Miscellaneous Notes * Telephone Encounter - Lidia Rich RN - 01/29/2025 4:28 PM EST TC placed to pt that HCG lab has been ordered and she can come have it done at any time * Telephone Encounter - Onesimo Smith - 01/29/2025 9:16 AM EST Tc from pt requesting a test through blood. Pt requested to be contacted when she is all set to come in. Contact pt at [phone] documented in this encounter Plan of Treatment Scheduled Orders Name Type Priority Associated Diagnoses Orde r Schedule hCG, Total, Quantitative Lab Routine Missed menses Expected: 01/29/2025 (Approximate), Expires: 01/29/2026 documented as of this encounter Visit Diagnoses Diagnosis Missed menses documented in this encounter Additional Health Concerns Assessment Noted Time PHQ-9 Depression Total Score: 0 01/08/20 25 8:52 AM EDT documented as of this encounter Care Teams Pipe Line Walker Relationship Specialty Start Date End Date Delaney Long MD [address] [place] [id number] PCP - General Family Medicine 02/28/20 documented as of this encounter
== END 2025-01-30 08:39 | disposition home or self-care (01) ==
LOC: HO.HHCL 08:38
PROVIDERS: PCP Internal Medicine; Visit Provider Internal Medicine
DX: N92.6 Irregular menstruation, unspecified (principal); Z32.00 Encounter for pregnancy test, result unknown
CPT/HCPCS: 36415; 84702